=== PATIENT | male | born 1990 | race African-American/Black ===

== ENCOUNTER → 2017-11-27 | Outpatient (CLI) | payer OTHER ==
--- NOTE | 2017-11-28 09:22 | RADIOLOGY REPORT (SQ) ---
EXAM DESCRIPTION: MRI RT LOWER JOINT WITHOUT COMPLETED DATE/TIME: 11/27/2017 6:13 pm REASON FOR STUDY: M25.511 M25.571 PAIN IN RIGHT ANKLE AND JOINTS OF RIGHT FOOT M79.672 PAIN IN LEF T FOOT COMPARISON: Outside radiographs from 06/20/[address] [facility]. TECHNIQUE: Right ankle images acquired and stored on PACS. Multiplanar images include fat sensitive sequences as T1, fluid sensitive sequences as FST2/STIR, cartilage sensitive sequences as FSPD, and g radient echo sequences. LIMITATIONS: None. FINDINGS: BONE MARROW: No alteration of signal to suggest marrow replacement or edema. No occult fra cture. No large osteophytes. EFFUSIONS: No subtalar or tibiotalar effusions. No loose bodies. OSSEOUS ARTICULATIONS: Normal tibiotalar, subtalar, talonavicular and calcaneocuboid joints. TALAR DOME AND TIBIAL PLAFOND: Talar dome intact with maintained mortise and tibial plafond. Promine nt trigonal process without marrow edema or regional fluid or soft tissue inflammation. ACHILLES TENDON: Intact without partial or full-thickness tear. No adjacent bursal fluid or edema. TIBIALIS ANTERIOR TENDON: Intact without edema at the 1st MT attachment. TIBIALIS POSTERIOR TENDON: Normal morphology and no edema at the navicular attachment. No tendon mccann th fluid. FLEXOR HALLUCIS LONGUS AND FLEXOR DIGITORUM TENDONS: Normal morphology and no tendon sheath fluid. No edema of the os trigonum. PERONEUS LONGUS AND BREVIS TENDON: Normal morphology and no tendon sheath fluid. No subluxation. ATFL, CFL, PTFL: Intact. No thickening or signal alteration. No fern-ligamentous fluid. DELTOID LIGAMENT: Visualized components intact. TARSAL TUNNEL: No masses. No muscle atrophy. SINUS TARSI: No fluid. No reactive marrow edema or erosions. PLANTAR FASCIA: No signal alteration or tear. ADJACENT SOFT TISSUES: No masses. OTHER: No other significant finding. IMPRESSION: 1. No significant internal derangement of the right ankle. TECHNICAL DOCUMENTATION: JOB ID: [id number] [employer]- All Rights Reserved Reading location - IP/workstation name: [facility]
--- NOTE | 2017-11-29 15:02 | RADIOLOGY REPORT (SQ) ---
EXAM DESCRIPTION: MRI LT LOWER EXTREMITY WITHOUT COMPLETED DATE/TIME: 11/27/2017 6:13 pm REASON FOR STUDY: M25.571 PAIN IN RIGHT ANKLE AND JOINTS OF RIGHT FOOT M79.672 PAIN IN LEFT F M25.57 1 PAIN IN RIGHT ANKLE AND JOINTS OF RIGHT FOOT M79.672 PAIN IN LEFT FOOT COMPARISON: Three views of the ankle obtained subsequent to MRI for correlation. TECHNIQUE: Left ankle images acquired and stored on PACS. Multiplanar images include fat sensitive s equences as T1, fluid sensitive sequences as FST2/STIR, cartilage sensitive sequences as FSPD, and gr adient echo sequences. LIMITATIONS: Skewed positioning of the ankle and foot within the MR scanner. FINDINGS: BONE MARROW: No alteration of signal to suggest marrow replacement or edema. No occult fra cture. No large osteophytes. EFFUSIONS: No subtalar or tibiotalar effusions. No loose bodies. OSSEOUS ARTICULATIONS: Normal tibiotalar, subtalar, talonavicular and calcaneocuboid joints. TALAR DOME AND TIBIAL PLAFOND: Normal cartilage. No osteochondral defect. ACHILLES TENDON: Intact without partial or full-thickness tear. No adjacent bursal fluid or edema. TIBIALIS ANTERIOR TENDON: Intact without edema at the 1st MT attachment. TIBIALIS POSTERIOR TENDON: Normal morphology and no edema at the navicular attachment. No tendon mccann th fluid. FLEXOR HALLUCIS LONGUS AND FLEXOR DIGITORUM TENDONS: Normal morphology and no tendon sheath fluid. No edema of the os trigonum. PERONEUS LONGUS AND BREVIS TENDON: Normal morphology and no tendon sheath fluid. No subluxation. ATFL, CFL, PTFL: Intact. No thickening or signal alteration. No fern-ligamentous fluid. DELTOID LIGAMENT: Visualized components intact. TARSAL TUNNEL: No masses. No muscle atrophy. SINUS TARSI: No fluid. No reactive marrow edema or erosions. PLANTAR FASCIA: No signal alteration or tear. ADJACENT SOFT TISSUES: No masses. OTHER: No other significant finding. IMPRESSION: 1. No significant internal derangement of the left ankle. TECHNICAL DOCUMENTATION: JOB ID: [id number] [employer]- All Rights Reserved Reading location - IP/workstation name: [email or web address] [id number]
== END ==
LOC: RAD 18:25
PROVIDERS: ATTEND Podiatrist Foot & Ankle Surgery
DX: M25.571 Pain in right ankle and joints of right foot (principal); M79.672 Pain in left foot; G89.29 Other chronic pain

== ENCOUNTER → 2017-11-29 | Outpatient (CLI) | payer OTHER ==
--- NOTE | 2017-11-29 14:41 | RADIOLOGY REPORT (SQ) ---
EXAM DESCRIPTION: ANKLE LEFT COMPLETE COMPLETED DATE/TIME: 11/29/2017 2:29 pm REASON FOR STUDY: PAIN IN LEFT ANKLE (M25.572) M25.572 PAIN IN LEFT ANKLE AND JOINTS OF LEFT FOOT COMPARISON: None. NUMBER OF VIEWS: Three views. TECHNIQUE: AP, lateral, and oblique with weight bearing radiographic images acquired of the left ank le. LIMITATIONS: None. FINDINGS: MINERALIZATION: Normal. BONES: No acute fracture or dislocation. No worrisome bone lesions. No significant osteophytes. JOINTS: No effusions. SOFT TISSUES: No soft tissue swelling. No foreign body. OTHER: No other significant finding. IMPRESSION: NO SIGNIFICANT FINDING IN THE LEFT ANKLE. NO EXPLANATION FOR PAIN. TECHNICAL DOCUMENTATION: JOB ID: [id number] [employer]- All Rights Reserved Reading location - IP/workstation name: [email or web address]
== END ==
LOC: RAD 13:55
PROVIDERS: ATTEND Podiatrist Foot & Ankle Surgery
DX: M25.572 Pain in left ankle and joints of left foot (principal)

== ENCOUNTER 2017-12-04 00:33 | Emergency (ER) | payer OTHER ==
--- NOTE | 2017-12-04 01:51 | ER Document Report ---
ED General - General Chief Complaint: High Blood Sugar Stated Complaint: BLOOD SUGAR/NEUROPATHY FLARE UP Time Seen by Provider: 12/04/17 01:40 Mode of Arrival: Ambulatory Information source: Patient Notes: 27-year-old male with hypertension, hyperlipidemia, type 2 diabetes, neuropathy presents with concern for elevated glucose reading of 500 yesterday evening. Patient admits to being unable to comply with his current medication regimen due to cost. Patient has been only taking NovoLog and Lantus but not as prescribed. Lantus is supposed to be 120 mg twice daily the patient has been unable to afford this. Patient denies any admissions for his diabetes in the past. He complains of nausea without vomiting, increasing thirst. He denies any fever, chills, chest pain, shortness of breath, abdominal pain, urinary urgency, frequency or dysuria. TRAVEL OUTSIDE OF THE [place] IN LAST 30 DAYS: No - HPI Onset: Yesterday Onset/Duration: Sudden Quality of pain: No pain Severity: None Associated symptoms: Nausea. denies: Chest pain, Vomiting Exacerbated by: Denies Relieved by: Denies Similar symptoms previously: No Recently seen / treated by doctor: No Past Medical History - General Information source: Patient - Social History Smoking Status: Former Smoker Frequency of alcohol use: None Drug Abuse: None Lives with: Family Family History: Reviewed & Not Pertinent Patient has suicidal ideation: No Patient has homicidal ideation: No - Past Medical History Cardiac Medical History: Reports: Hx Hypercholesterolemia, Hx Hypertension Neurological Medical History: Reports: Other - Neuropathy Endocrine Medical History: Reports: Hx Diabetes Mellitus Type 2 Review of Systems - Review of Systems Notes: REVIEW OF SYSTEMS: CONSTITUTIONAL : Denies fever, chills, or sweats. Denies recent illness. Denies weight loss, recent hospitalizations. EENT: Denies visual changes, eye pain. Denies nasal or sinus congestion or discharge. Denies sore throat, oral lesions, difficulty swallowing. CARDIOVASCULAR: Denies chest pain. Denies palpitations. Denies lower extremity edema. RESPIRATORY: Denies cough, cold, or chest congestion. Denies shortness of breath, wheezing. GASTROINTESTINAL: Denies abdominal pain or distention. Denies vomiting, or diarrhea. Denies blood in vomitus, stools, or per rectum. Denies black, tarry stools. Denies constipation. GENITOURINARY: Denies difficulty urinating, painful urination, frequency, blood in urine, or vaginal discharge. MUSCULOSKELETAL: Denies back or neck pain or stiffness. Denies joint pain or swelling. SKIN: Denies rash, lesions or sores. HEMATOLOGIC : Denies easy bruising or bleeding. LYMPHATIC: Denies swollen glands. NEUROLOGICAL: Denies confusion or altered mental status. Denies passing out or loss of consciousness. Denies dizziness or lightheadedness. Denies headache. Denies weakness or paralysis. Denies problems difficulty with ambulation, slurred speech. Denies sensory loss, numbness, or tingling. Denies seizures. PSYCHIATRIC: Denies anxiety or stress. Denies depression, suicidal ideation, or homicidal ideation. Denies visual or auditory hallucinations. Physical Exam - Vital signs Vitals: Temp Pulse Resp BP Pulse Ox 98.5 F 116 H 16 163/106 H 99 12/04/17 01:11 12/04/17 01:11 12/04/17 01:11 12/04/17 01:11 12/04/17 01:11 Interpretation: Hypertensive, Tachycardic - Notes Notes: PHYSICAL EXAMINATION: GENERAL: Well-appearing, well-nourished and in no acute distress. HEAD: Atraumatic, normocephalic. EYES: Pupils equal round and reactive to light, extraocular movements intact, sclera anicteric, conjunctiva are normal. ENT: Nares patent, oropharynx clear without exudates. Dry mucous membranes. NECK: Normal range of motion, supple without lymphadenopathy LUNGS: Breath sounds clear to auscultation bilaterally and equal. No wheezes rales or rhonchi. HEART: Tachycardic, regular rhythm without murmurs ABDOMEN: Soft, nontender, nondistended abdomen. No guarding, no rebound. No masses appreciated. Musculoskeletal: Normal range of motion, no pitting or edema. No cyanosis. NEUROLOGICAL: Cranial nerves grossly intact. Normal speech, normal gait. Normal sensory, motor exams PSYCH: Normal mood, normal affect. SKIN: Warm, Dry, normal turgor, no rashes or lesions noted. Course - Re-evaluation Re-evalutation: Laboratory 12/04/17 12/04/17 12/04/17 02:26 02:26 02:26 WBC 7.0 RBC 6.03 H Hgb 16.3 Hct 47.9 MCV 80 MCH 27.0 MCHC 33.9 RDW 13.2 Plt Count 249 Seg Neutrophils % 64.2 Lymphocytes % 27.4 Monocytes % 6.8 Eosinophils % 0.9 Basophils % 0.7 Absolute Neutrophils 4.5 Absolute Lymphocytes 1.9 Absolute Monocytes 0.5 Absolute Eosinophils 0.1 Absolute Basophils 0.1 VBG pH VBG pCO2 VBG HCO3 VBG Base Excess Sodium 132.6 L Potassium 4.6 Chloride 91 L Carbon Dioxide 24 Anion Gap 18 BUN 13 Creatinine 0.81 Est GFR ( Amer) > 60 Est GFR (Non-Af Amer) > 60 Glucose 667 H* Calcium 10.2 Total Bilirubin 0.4 Direct Bilirubin 0.4 Neonat Total Bilirubin Not Reportable Neonat Direct Bilirubin Not Reportable Neonat Indirect Bili Not Reportable AST 19 ALT 32 Alkaline Phosphatase 118 Total Protein 7.0 Albumin 4.0 Urine Color COLORLESS Urine Appearance CLEAR Urine pH 6.0 Ur Specific Garrett 1.023 Urine Protein NEGATIVE Urine Glucose (UA) >=500 H Urine Ketones NEGATIVE Urine Blood NEGATIVE Urine Nitrite NEGATIVE Urine Bilirubin NEGATIVE Urine Urobilinogen NEGATIVE Ur Leukocyte Esterase NEGATIVE Urine WBC (Auto) 0 Urine Mucus (Auto) RARE Urine Ascorbic Acid NEGATIVE 12/04/17 03:14 WBC RBC Hgb Hct MCV MCH MCHC RDW Plt Count Seg Neutrophils % Lymphocytes % Monocytes % Eosinophils % Basophils % Absolute Neutrophils Absolute Lymphocytes Absolute Monocytes Absolute Eosinophils Absolute Basophils VBG pH 7.35 VBG pCO2 44.4 VBG HCO3 24.0 VBG Base Excess -1.8 Sodium Potassium Chloride Carbon Dioxide Anion Gap BUN Creatinine Est GFR ( Amer) Est GFR (Non-Af Amer) Glucose Calcium Total Bilirubin Direct Bilirubin Neonat Total Bilirubin Neonat Direct Bilirubin Neonat Indirect Bili AST ALT Alkaline Phosphatase Total Protein Albumin Urine Color Urine Appearance Urine pH Ur Specific Garrett Urine Protein Urine Glucose (UA) Urine Ketones Urine Blood Urine Nitrite Urine Bilirubin Urine Urobilinogen Ur Leukocyte Esterase Urine WBC (Auto) Urine Mucus (Auto) Urine Ascorbic Acid 12/04/17 03:42 27-year-old type II diabetic presents with concern for elevated glucose reading last evening. He states his glucose was over 500 yesterday. He does admit to being noncompliant with his diabetic medication secondary to cost. He currently is changing insurances. Patient admits to associated nausea but denies vomiting. He has no other physical complaints. Upon arrival patient is hypertensive, tachycardic. He does not appear toxic or dehydrated. He is in no acute distress. Previous medical records and nursing notes reviewed. CBC is without leukocytosis or anemia. CMP does show hyponatremia (likely false and secondary to hyperglycemia), marked hyperglycemia without evidence of DKA. VBG and urinalysis were obtained and essentially within normal limits except for glucose in the urine. Patient did receive 3 L of IV fluids, 15 units of insulin, and 40 mEq of potassium p.o. He remained stable throughout his ED course. Social service consult was placed with hope that he will receive help obtaining his prescribed medications. - Vital Signs Vital signs: Temp Pulse Resp BP Pulse Ox 98.5 F 116 H 16 163/106 H 99 12/04/17 01:11 12/04/17 01:11 12/04/17 01:11 12/04/17 01:11 12/04/17 01:11 - Laboratory Result Diagrams: 12/04/17 02:26 12/04/17 02:26 Laboratory results interpreted by me: 12/04/17 12/04/17 12/04/17 02:26 02:26 02:26 RBC 6.03 H Sodium 132.6 L Chloride 91 L Glucose 667 H* Urine Glucose (UA) >=500 H Discharge - Discharge Clinical Impression: Tachycardia, Hyperglycemia, Noncompliance with medication regimen, Neuropathy Hypertension Qualifiers: Hypertension type: unspecified Qualified Code(s): I10 - Essential (primary) hypertension Condition: Good Disposition: HOME, SELF-CARE Instructions: Hyperglycemia ([facility]), High Blood Pressure ([facility]), Neuropathy ([facility]) Additional Instructions: A social work nurse consult has been placed for you. They will contact you regarding your medication needs. In the meantime please contact your management retail intern and primary care physician to see if they can help you obtain these medications. Follow up with your physician tomorrow for further care or return to the ED IMMEDIATELY if symptoms worsen or new concerns occur. If you cannot afford to follow up with your primary care physician a list of low cost clinics have been provided at the end of your discharge papers as well. Prescriptions: Metformin HCl [Metformin HCl ER] 1,000 mg PO BID #60 [id number] Forms: Elevated Blood Pressure [facility] [NO LOCAL MD] - Follow up in 3-5 days
[2017-12-04] MEDS: NORMAL SALINE 1000 ML 1,000 ML IV PRN ×2 (02:22→03:38)
[2017-12-04 02:51] LABS: ABSOLUTE BASOPHILS # (AUTO) 0.1 10^3/uL (0.0-0.2); ABSOLUTE EOSINOPHILS # (AUTO) 0.1 10^3/uL (0.0-0.6); ABSOLUTE LYMPHOCYTES (AUTO) 1.9 10^3/uL (0.5-4.7); ABSOLUTE MONOCYTES (AUTO) 0.5 10^3/uL (0.1-1.4); ABSOLUTE NEUT (AUTO) 4.5 10^3/uL (1.7-8.2); BASOPHILS % (AUTO) 0.7 % (0-2); EOSINOPHILS % (AUTO) 0.9 % (0-6); HEMATOCRIT 47.9 % (37.9-51.0); HEMOGLOBIN 16.3 g/dL (13.5-17.0); LYMPHOCYTES % (AUTO) 27.4 % (13-45); MEAN CORPUSCULAR HGB CONC 33.9 g/dL (32.0-36.0); MEAN CORPUSCULAR VOLUME 80 fl (80-97); MONOCYTES % (AUTO) 6.8 % (3-13); PLATELET COUNT 249 10^3/uL (150-450); RED BLOOD COUNT 6.03 10^6/uL (4.35-5.55); RED CELL DISTRIBUTION WIDTH 13.2 % (11.5-14.0); SEGMENTED NEUTROPHILS % (AUTO) 64.2 % (42-78); TOTAL CELLS COUNTED % (AUTO) 100 %
[2017-12-04 03:03] LABS: APPEARANCE,URINE CLEAR; BILIRUBIN,URINE NEGATIVE (NEGATIVE); COLOR,URINE COLORLESS; GLUCOSE, URINE >=500 mg/dL (NEGATIVE); KETONES,URINE NEGATIVE (NEGATIVE); LEUKOCYTE ESTERASE,URINE NEGATIVE (NEGATIVE); NITRITE,URINE NEGATIVE (NEGATIVE); PROTEIN,URINE NEGATIVE (NEGATIVE); URINE SPECIFIC GRAVITY 1.023; UROBILINOGEN,URINE NEGATIVE mg/dL (<2.0)
[2017-12-04 03:05] LABS: ALANINE AMINOTRANSFERASE 32 U/L (21-72); ALKALINE PHOSPHATASE 118 U/L (38-126); ANION GAP 18 (5-19); ASPARTATE AMINO TRANSFERASE 19 U/L (17-59); BILIRUBIN,DIRECT 0.4 mg/dL (0.0-0.4); BILIRUBIN,TOTAL 0.4 mg/dL (0.2-1.3); BLOOD UREA NITROGEN 13 mg/dL (7-20); CALCIUM 10.2 mg/dL (8.4-10.2); CARBON DIOXIDE 24 mmol/L (22-30); CHLORIDE 91 mmol/L (98-107); POTASSIUM 4.6 mmol/L (3.6-5.0); SODIUM 132.6 mmol/L (137-145)
[2017-12-04 03:19] LABS: GLUCOSE 667 mg/dL (75-110)
[2017-12-04] MEDS ORDERED: NORMAL SALINE 1000 ML 1,000 ML IV ONE ×2 (03:20→03:59)
[2017-12-04] MEDS ORDERED: INSULIN REG, HUMAN 100 UNIT/ML 3 ML VIAL (PYX) IV ONE ×2 (03:28→03:59)
[2017-12-04] MEDS ORDERED: POTASSIUM CHLORIDE 10 MEQ CAPSULE.ER PO ONE (03:28)
[2017-12-04 03:35] LABS: VENOUS BLOOD BASE EXCESS -1.8 mmol/L; VENOUS BLOOD PCO2 44.4 mmHg (35-63); VENOUS BLOOD PH 7.35 (7.30-7.42)
[2017-12-04 05:42] VITALS: BP 173/86
== END 2017-12-04 05:48 | disposition home or self-care (01) ==
LOC: ER 00:33
DX: E11.65 Type 2 diabetes mellitus with hyperglycemia (principal); E11.40 Type 2 diabetes mellitus with diabetic neuropathy, unspecified; T38.3X6A Underdosing of insulin and oral hypoglycemic [antidiabetic] drugs, initial encounter; Z91.120 Patient's intentional underdosing of medication regimen due to financial hardship; Z91.14 Patient's other noncompliance with medication regimen; R11.0 Nausea; R00.0 Tachycardia, unspecified; I10 Essential (primary) hypertension; Z87.891 Personal history of nicotine dependence
CPT/HCPCS: 99285; 96360; 96361; 36415; 82962; 85025; 80053; 81001; 82803; J1815; J7030

== ENCOUNTER 2018-03-13 21:11 | Emergency (ER) | payer OTHER ==
[2018-03-13] MEDS ORDERED: PENICILLIN V POTASSIUM 500 MG TABLET PO ONE (23:02)
[2018-03-13] MEDS ORDERED: IBUPROFEN 800 MG TABLET PO ONE (23:02)
--- NOTE | 2018-03-13 23:06 | ER Document Report ---
ED Oral Problem - General Chief Complaint: Dental Injury Stated Complaint: EAR/THROAT PAIN Time Seen by Provider: 03/13/18 22:18 Mode of Arrival: Ambulatory Information source: Patient Notes: 27-year-old male presented to ED for complaint of pain in tooth #31. He states he cracked it today and this tooth has a feeling but the part of the tube has exposed a cavity. He states the pain has started causing him to have a sore throat headache and earache. He denies any fevers chills or signs of illness. Is alert and oriented respirations regular and unlabored speaking in full sentences. TRAVEL OUTSIDE OF THE [place] IN LAST 30 DAYS: No - HPI Patient complains to provider of: Jaw pain, Toothache Onset: This afternoon Onset: Gradual Quality of pain: Achy, Sharp Severity: Moderate Pain Level: 4 Associated symptoms: Toothache Worsened by: Cold Relieved by: Nothing Similar symptoms previously: Yes Recently seen / treated by doctor/dentist: No - Related Data Allergies/Adverse Reactions: No Known Drug Allergies Allergy (Verified 03/13/18 21:16) Past Medical History - General Information source: Patient - Social History Smoking Status: Former Smoker Cigarette use (# per day): No Chew tobacco use (# tins/day): No Smoking Education Provided: No Frequency of alcohol use: None Lives with: Parents Family History: Reviewed & Not Pertinent Patient has suicidal ideation: No Patient has homicidal ideation: No - Past Medical History Cardiac Medical History: Reports: Hx Hypercholesterolemia, Hx Hypertension Pulmonary Medical History: Reports: Hx Asthma EENT Medical History: Reports: None Neurological Medical History: Reports: None Endocrine Medical History: Reports: Hx Diabetes Mellitus Type 2 - With neuropathy Renal/ Medical History: Reports: None Malignancy Medical History: Reports None GI Medical History: Reports: None Musculoskeletal Medical History: Reports None Skin Medical History: Reports None Psychiatric Medical History: Reports: None Traumatic Medical History: Reports: None Infectious Medical History: Reports: None Surgical Hx: Negative - Immunizations Immunizations up to date: Yes Review of Systems - Review of Systems Notes: REVIEW OF SYSTEMS: CONSTITUTIONAL : Denies fever, chills, or sweats. Denies recent illness. EENT: Planes of pain in tooth #31 that is radiating to his head and ear. He states he took a piece of this tooth off today and now it is exposed to a cavity underneath of the tooth and is is caused pain. He states he just needs some antibiotics so he does not get an infection until he can follow-up with the dentist. CARDIOVASCULAR: Denies chest pain. Denies palpitations or racing or irregular heart beat. Denies ankle edema. RESPIRATORY: Denies cough, cold, or chest congestion. Denies shortness of breath, difficulty breathing, or wheezing. GASTROINTESTINAL: Denies abdominal pain or distention. Denies nausea, vomiting , or diarrhea. Denies blood in vomitus, stools, or per rectum. Denies black, tarry stools. Denies constipation. GENITOURINARY: Denies difficulty urinating, painful urination, burning, frequency, blood in urine, or discharge. MUSCULOSKELETAL: Denies back or neck pain or stiffness. Denies joint pain or swelling. SKIN: Denies rash, lesions or sores. HEMATOLOGIC : Denies easy bruising or bleeding. LYMPHATIC: Denies swollen, enlarged glands. NEUROLOGICAL: Denies confusion or altered mental status. Denies passing out or loss of consciousness. Denies dizziness or lightheadedness. Denies headache. Denies weakness or paralysis or loss of use of either side. Denies problems with gait or speech. Denies sensory loss, numbness, or tingling. Denies seizures. PSYCHIATRIC: Denies anxiety or stress. Denies depression, suicidal ideation, or homicidal ideation. ALL OTHER SYSTEMS REVIEWED AND NEGATIVE. Dictation was performed using [employer] voice recognition software PHYSICAL EXAMINATION: GENERAL: Well-appearing, well-nourished and in no acute distress. HEAD: Atraumatic, normocephalic. EYES: Pupils equal round and reactive to light, extraocular movements intact, sclera anicteric, conjunctiva are normal. ENT: Nares patent, oropharynx clear without exudates. Moist mucous membranes. Patient complains of dental pain in tooth #31. There is a portion of the tooth number 31 minutes into the posterior aspect of the tooth. There is a cavity in this area. There is very minimal redness to the surrounding gums with no signs of an abscess. NECK: Normal range of motion, supple without lymphadenopathy LUNGS: Breath sounds clear to auscultation bilaterally and equal. No wheezes rales or rhonchi. HEART: Regular rate and rhythm without murmurs ABDOMEN: Soft, nontender, nondistended abdomen. No guarding, no rebound. No masses appreciated. Musculoskeletal: Normal range of motion, no pitting or edema. No cyanosis. NEUROLOGICAL: Cranial nerves grossly intact. Normal speech, normal gait. Normal sensory, motor exams PSYCH: Normal mood, normal affect. SKIN: Warm, Dry, normal turgor, no rashes or lesions noted. Physical Exam - Vital signs Vitals: Temp Pulse Resp BP Pulse Ox 98.9 F 116 H 18 151/105 H 98 03/13/18 21:22 03/13/18 21:22 03/13/18 21:22 03/13/18 21:22 03/13/18 21:22 Course - Re-evaluation Re-evalutation: 03/14/18 03:14 Presentation is most consistent with likely an infected tooth. Airway is patent. Vitals within normal limits. Patient is able swallow without any difficulty. There is no significant facial swelling. No evidence of Trevin angina, apical abscess, or airway obstruction. Patient will be started on antibiotics. I've instructed to follow-up with dentistry as earliest ability for definitive management. At this time will discharge with return precautions and follow-up recommendations. Verbal discharge instructions given a the bedside and opportunity for questions given. Medication warnings reviewed. Patient is in agreement with this plan and has verbalized understanding of return precautions and the need for primary care follow-up in the next 24-72 hours. - Vital Signs Vital signs: Temp Pulse Resp BP Pulse Ox 98.0 F 117 H 18 121/83 97 03/13/18 23:09 03/13/18 23:09 03/13/18 23:09 03/13/18 23:09 03/13/18 23:09 Discharge - Discharge Clinical Impression: Pain due to dental caries Condition: Stable Disposition: HOME, SELF-CARE Instructions: Family Physicians / Practices, Use of [id number] Ibuprofen ([facility]) Additional Instructions: TOOTHACHE: Your pain is due to dental decay. The tooth must be repaired in order for you to feel better. You will, therefore, be referred to a dentist. We do not have dentists on the staff at [facility]. Severe swelling or drainage around a tooth usually means a dental abscess. This also requires evaluation and treatment by the dentist, but antibiotics may be prescribed while awaiting dental treatment. You should be rechecked immediately if you develop major swelling of the face, increasing pain, a lump in the jaw or gums, headache, difficulty swallowing, or fever. PENICILLIN V K: You have been given a prescription for Penicillin VK. Your physician has determined that this is the best antibiotic for your condition. Pen VK can be taken with meals, however more of the antibiotic gets into the bloodstream if it's taken on an empty stomach. Penicillin usually has no side effects. However, allergy to penicillins is common. If you have had an allergic reaction to any drug of the penicillin family, you should never take any other penicillin. Notify your doctor at once if you develop hives, itching, swelling, faintness, or shortness of breath. FOLLOW-UP CARE: You have been referred for follow-up care to the dentists listed below. Call the dentists office for an appointment as you were instructed or within the next two days. If you experience worsening or a significant change in your symptoms, notify the physician immediately or return to the Emergency Department at any time for re-evaluation. [facility] [address] [place], [place] [facility] [address] [place] [address] [facility] [address] [facility] [address] [facility] [place] [id number] [facility] [email or web address] [address] [place] [address] Saturday- 8:00am to 5:00 pm Will see patients from other [facility]. Charges based on income and family size and accepts Medicare, Medicaid, and Insurances Will pull molars [facility] [address] Hours of Operation 8:00 am - 4:30 pm weekdays The following dental offices accept Medicaid: [facility] Dr. Abraham Dr. Dyer Dr. Meeks Dr. Vela Jose Combs [place], and [facility] oral surgery Dr. Frazier ([place]) Dr. Cowan ([place]) [facility] Drs. Wells ([place]) Dr. Heaton ([place]) [facility] Dr. Brenner ([place]) Drs. Irby and ([place]) Medicaid Care Line Prescriptions: Penicillin V Potassium [Penicillin Vk 500 mg Tablet] 500 mg PO BID #20 tablet Forms: Elevated Blood Pressure
[2018-03-13 23:15] VITALS: BP 121/83
== END 2018-03-13 23:15 | disposition home or self-care (01) ==
LOC: ER 21:11
DX: K02.9 Dental caries, unspecified (principal); E78.00 Pure hypercholesterolemia, unspecified; I10 Essential (primary) hypertension; E11.9 Type 2 diabetes mellitus without complications
CPT/HCPCS: 99283

== ENCOUNTER 2018-03-23 23:24 | Emergency (ER) | payer OTHER ==
[2018-03-24] MEDS ORDERED: KETOROLAC TROMETHAMINE 60 MG/2 ML SDV IM ONE (00:36)
--- NOTE | 2018-03-24 00:42 | ER Document Report ---
HPI - HPI Patient complains to provider of: Back pain Time Seen by Provider: 03/24/18 00:24 Pain Level: 3 Context: The lumbar and thoracic back pain since June. 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 States he was falling backwards onto his buttocks multiple times and at one point in time landed on his back. States he thinks that is when he originally hurt it. States that the pain is intermittent at times more so in his upper lumbar lower thoracic region. Patient denies urinary retention, loss of bowel or bladder. Patient does state he has a history of diabetic neuropathy, is on gabapentin. States the numbness and tingling in bilateral feet has increased and is also intermittent in nature. Patient denies any pain radiating down the buttocks or into the back of either leg. Past medical history: Diabetes, diabetic neuropathy, hypertension, hyperlipidemia, GERD Medications: Metformin, Jardiance, gabapentin, Lipitor, atorvastatin, Nexium allergies: None Surgical history: None Patient denies cigarette smoking, denies EtOH use, denies illicit drug use to include past IV drug use. - CONSTITUTIONAL Constitutional: DENIES: Fever, Chills - EENT EENT: DENIES: Sore Throat, Ear Pain, Eye problems - NEURO Neurology: DENIES: Headache, Weakness, Vision blurred, Dizzinesss / Vertigo - CARDIOVASCULAR Cardiovascular: DENIES: Chest pain - RESPIRATORY Respiratory: DENIES: Trouble Breathing, Coughing - GASTROINTESTINAL Gastrointestinal: DENIES: Abdominal Pain, Black / Bloody Stools - URINARY Urinary: DENIES: Dysuria, Urgency, Frequency - MUSCULOSKELETAL Musculoskeletal: REPORTS: Extremity pain - Legs Past Medical History - General Information source: Patient - Social History Smoking Status: Former Smoker Lives with: Family - She did on Saturday Family History: Reviewed & Not Pertinent Patient has suicidal ideation: No Patient has homicidal ideation: No - Past Medical History Cardiac Medical History: Reports: Hx Hypercholesterolemia, Hx Hypertension Pulmonary Medical History: Reports: Hx Asthma Endocrine Medical History: Reports: Hx Diabetes Mellitus Type 2 - With neuropathy Renal/ Medical History: Denies: Hx Peritoneal Dialysis - Immunizations Immunizations up to date: Yes Vertical Provider Document - CONSTITUTIONAL Agree With Documented VS: Yes Notes: GENERAL: Alert, interacts well. No acute distress. HEAD: Normocephalic, atraumatic. EYES: Pupils equal, round, and reactive to light. Extraocular movements intact. ENT: Oral mucosa moist, tongue midline. NECK: Full range of motion. Supple. Trachea midline. LUNGS: Clear to auscultation bilaterally, no wheezes, rales, or rhonchi. No respiratory distress. HEART: Regular rate and rhythm. No murmur ABDOMEN: Soft, non-tender. Non-distended. Bowel sounds present in all 4 quadrants. EXTREMITIES: Moves all 4 extremities spontaneously. No edema, normal radial and dorsalis pedis pulses bilaterally. No cyanosis. 5 out of 5 strength all 4 extremities. BACK: no cervical midline tenderness. No saddle anesthesia, normal distal neurovascular exam. Mild lower thoracic, upper lumbar mid line tenderness upon palpation. No CVA tenderness, or pain radiating into either buttocks. NEUROLOGICAL: Alert and oriented x3. Normal speech. cranial nerves II through XII grossly intact. PSYCH: Normal affect, normal mood. SKIN: Warm, dry, normal turgor. No rashes or lesions noted. Feet: Extensive exam of bilateral feet reveals no breaks in the skin, capillary refill less than 2 seconds, positive PMS. - INFECTION CONTROL TRAVEL OUTSIDE OF THE [place] IN LAST 30 DAYS: No Course - Re-evaluation Re-evalutation: 03/24/18 01:51 X-rays revealed no signs of fracture. Patient states Toradol has helped his pain in the emergency room. Due to patient driving I will prescribe him home with Flexeril. Discussed close follow-up with primary care provider. Return precautions discussed. Vitals reviewed, Nursing notes reviewed. Discharge - Discharge Clinical Impression: Back pain Qualifiers: Back pain location: low back pain Chronicity: acute Back pain laterality: midline Sciatica presence: without sciatica Qualified Code(s): M54.5 - Low back pain Condition: Stable Disposition: HOME, SELF-CARE Instructions: Low Back Pain ([facility]), Muscle Strain ([facility]), Warm Packs ([facility]) Additional Instructions: As we discussed you have been seen and treated in the emergency department for low back pain. You should follow-up with your primary care provider in the next 24-48 hours. Please take medications as prescribed. Please return to the emergency room for any other concerning symptoms. And orthopedic follow-up phone number will be within this packet. Please follow -up with Ortho for further MRI testing. Prescriptions: Ketorolac Tromethamine [Toradol 10 mg Tablet] 10 mg PO Q8HP PRN #24 tablet PRN Reason: Cyclobenzaprine HCl [Flexeril 10 mg Tablet] 10 mg PO TIDP PRN #15 tab PRN Reason: Referrals: NORAH BONE MD [ACTIVE STAFF] - Follow up as needed
--- NOTE | 2018-03-24 01:36 | RADIOLOGY REPORT (SQ) ---
EXAM DESCRIPTION: XR THORACIC SPINE 2 VIEWS COMPLETED DATE/TME: 03/24/2018 00:35 CLINICAL HISTORY: 27 years, Male, pain COMPARISON: None. NUMBER OF VIEWS: 3 TECHNIQUE: 3 views of the thoracic spine LIMITATIONS: None. FINDINGS: Vertebral body height and alignment is preserved. The disc spaces are maintained. IMPRESSION: Negative exam 2010 [facility]- All Rights Reserved
--- NOTE | 2018-03-24 01:49 | RADIOLOGY REPORT (SQ) ---
EXAM DESCRIPTION: XR LUMBAR SPINE ANTEROPOSTERIOR, LATERAL, AND OBLIQUES COMPLETED DATE/TME: 03/24/2018 00:35 CLINICAL HISTORY: 27 years ,Male pain COMPARISON: None. TECHNIQUE: Five views FINDINGS: Vertebral body alignment is unremarkable. No acute fractures are identified. IMPRESSION: No acute fracture is identified.
[2018-03-24 03:02] VITALS: BP 152/106
== END 2018-03-24 02:15 | disposition home or self-care (01) ==
LOC: ER 23:24
DX: M54.5 Low back pain (principal); M54.6 Pain in thoracic spine; E11.40 Type 2 diabetes mellitus with diabetic neuropathy, unspecified; I10 Essential (primary) hypertension; J45.909 Unspecified asthma, uncomplicated; E78.5 Hyperlipidemia, unspecified; E78.00 Pure hypercholesterolemia, unspecified; K21.9 Gastro-esophageal reflux disease without esophagitis; Z79.84 Long term (current) use of oral hypoglycemic drugs; Z79.899 Other long term (current) drug therapy; Z87.891 Personal history of nicotine dependence
CPT/HCPCS: 99283; 96372; 72110; 72070; J1885

== ENCOUNTER 2018-04-01 17:03 | Emergency (ER) | payer OTHER ==
--- NOTE | 2018-04-01 18:31 | ER Document Report ---
ED Medical Screen (RME) - General Chief Complaint: Depression Stated Complaint: ANIEXTY Time Seen by Provider: 04/01/18 18:11 TRAVEL OUTSIDE OF THE [place] IN LAST 30 DAYS: No - HPI Patient complains to provider of: insomnia - Related Data Allergies/Adverse Reactions: No Known Drug Allergies Allergy (Verified 03/13/18 21:16) Past Medical History - General Information source: Patient - Social History Cigarette use (# per day): No Frequency of alcohol use: None Lives with: Alone - Past Medical History Cardiac Medical History: Reports: Hx Hypercholesterolemia, Hx Hypertension Pulmonary Medical History: Reports: Hx Asthma Endocrine Medical History: Reports: Hx Diabetes Mellitus Type 2 - With neuropathy Renal/ Medical History: Denies: Hx Peritoneal Dialysis - Immunizations Immunizations up to date: Yes Review of Systems - Review of Systems -: Yes All other systems reviewed and negative Physical Exam - Vital signs Vitals: Temp Pulse Resp BP Pulse Ox 98.4 F 115 H 16 160/99 H 99 04/01/18 17:13 04/01/18 17:13 04/01/18 17:13 04/01/18 17:13 04/01/18 17:13 - General General appearance: Appears well, Alert - HEENT Head: Normocephalic, Atraumatic Eyes: Normal Pupils: PERRL - Respiratory Respiratory status: No respiratory distress Chest status: Nontender Breath sounds: Normal Chest palpation: Normal - Cardiovascular Rhythm: Regular Heart sounds: Normal auscultation Murmur: No - Abdominal Inspection: Normal Distension: No distension Bowel sounds: Normal Tenderness: Nontender Organomegaly: No organomegaly - Back Back: Normal, Nontender - Extremities General upper extremity: Normal inspection, Nontender, Normal color, Normal ROM , Normal temperature General lower extremity: Normal inspection, Nontender, Normal color, Normal ROM , Normal temperature, Normal weight bearing. No: Nilo's sign - Neurological Neuro grossly intact: Yes Cognition: Normal Orientation: AAOx4 Morrice Coma Scale Eye Opening: Spontaneous Franklin Coma Scale Verbal: Oriented Morrice Coma Scale Motor: Obeys Commands Morrice Coma Scale Total: 15 Speech: Normal Motor strength normal: LUE, RUE, LLE, RLE Sensory: Normal - Psychological Associated symptoms: Normal affect, Normal mood Course - Re-evaluation Re-evalutation: 27 yo with a hx of anxiety and recently insomnia that presents that for evaluation of inability to sleep for the last 3 days and worsening anxiety as a result thereof. He specifically denies fevers, chest pains, suicidality, homicidality or hallucinations. In discussion we mutually decided to try a brief trial of a sleep aid. We will give a 3-day prescription for Ambien. We did discuss the importance of appropriate sleep hygiene. He agreed to return in case of any worsening depression anxiety chest pain or other symptoms. Though his heart rate was elevated upon arrival I do not believe this represents any other more serious underlying cause of his heart rate being elevated such as but not limited to a pulmonary embolism or ID. - Vital Signs Vital signs: Temp Pulse Resp BP Pulse Ox 98.6 F 88 18 142/74 H 100 04/01/18 18:52 04/01/18 18:52 04/01/18 18:52 04/01/18 18:52 04/01/18 18:52 Doctor's Discharge - Discharge Clinical Impression: Acute insomnia Condition: Good Disposition: HOME, SELF-CARE Instructions: Insomnia ([facility]) Additional Instructions: You were seen today in the emergency department for your insomnia. You should use this medication only as needed for the next 3 nights. Sure that she go to bed at a reasonable time, do not locate any screens an hour before you go to bed. You need to go to bed in a dark room with no lights on and cool air. He should avoid caffeine for 12 hours prior to bed. You should also take a dose of melatonin prior to going to bed. Sleep as late as you can. If you have worsening fevers or chills depression thoughts of harming herself or vivid dreams discontinue the medication return to the emergency room. Prescriptions: Zolpidem Tartrate [Ambien 5 mg Tablet] 5 mg PO HSP PRN 3 Days #3 tablet PRN Reason: Forms: Elevated Blood Pressure Referrals: DAY AMEZCUA MD [NO LOCAL MD] - Follow up as needed
[2018-04-01 18:53] VITALS: BP 142/74
== END 2018-04-01 18:53 | disposition home or self-care (01) ==
LOC: ER 17:03
DX: G47.00 Insomnia, unspecified (principal); F32.9 Major depressive disorder, single episode, unspecified; F41.9 Anxiety disorder, unspecified; E78.00 Pure hypercholesterolemia, unspecified; I10 Essential (primary) hypertension; E11.9 Type 2 diabetes mellitus without complications
CPT/HCPCS: 99283

== ENCOUNTER 2018-04-06 21:09 | Emergency (ER) | payer OTHER ==
[2018-04-06 21:25] VITALS: BP 140/89
[2018-04-06] MEDS ORDERED: ACETAMINOPHEN 325 MG TABLET PO ONE (22:48)
--- NOTE | 2018-04-06 23:43 | RADIOLOGY REPORT (SQ) ---
EXAM DESCRIPTION: XR ANKLE 3 OR MORE VIEWS COMPLETED DATE/TME: 04/06/2018 22:48 CLINICAL HISTORY: 27 years, Male, rolled ankle COMPARISON: None. NUMBER OF VIEWS: 3 TECHNIQUE: 3 views of the right ankle LIMITATIONS: None. FINDINGS: Negative for fracture or dislocation. Soft tissues are unremarkable. Ankle mortise is intact IMPRESSION: Negative exam copyright 2010 [facility] [employer]- All Rights Reserved
--- NOTE | 2018-04-06 23:44 | RADIOLOGY REPORT (SQ) ---
EXAM DESCRIPTION: XR FOOT 3 OR MORE VIEWS COMPLETED DATE/TME: 04/06/2018 22:51 CLINICAL HISTORY: 27 years, Male, rolled ankle, concern about foot inj, hx neuropath COMPARISON: None. NUMBER OF VIEWS: 3 TECHNIQUE: 3 view right foot LIMITATIONS: None. FINDINGS: Linear metallic densities project along the plantar aspect of the proximal phalanx of the great toe. Correlate with history. Negative for acute fracture or dislocation. Tiny posterior calcaneal spur. There is periarticular osteopenia is suggested throughout the foot. IMPRESSION: Nonspecific periarticular osteopenia. No acute osseous abnormality. Tiny calcaneal spur. Linear metallic densities along the plantar aspect of the soft tissues of the great toe. Correlate with history copyright 2010 [employer]- All Rights Reserved
--- NOTE | 2018-04-07 00:03 | ER Document Report ---
HPI - HPI Patient complains to provider of: Right ankle pain Time Seen by Provider: 04/06/18 22:36 Onset: Other - 2 days Onset/Duration: Persistent Quality of pain: Achy Pain Level: 4 Context: Patient presents complaining of right ankle pain after rolling his ankle 2 days ago. Patient states he has previously sprained this ankle in the past. Patient also complains of discoloration that he is noted to his great toe of the right foot. Patient states that he has peripheral neuropathy and he is diabetic so is very concerned about any potential injuries to his feet. Patient states that he is very anxious which is why his heart rate is fast at this time. Associated Symptoms: Other - Right ankle pain. denies: Fever Exacerbated by: Movement Relieved by: Denies Similar symptoms previously: Yes Recently seen / treated by doctor: No - ROS ROS below otherwise negative: Yes Systems Reviewed and Negative: Yes All other systems reviewed and negative - CONSTITUTIONAL Constitutional: DENIES: Fever, Chills - CARDIOVASCULAR Cardiovascular: DENIES: Chest pain - RESPIRATORY Respiratory: DENIES: Trouble Breathing, Coughing - GASTROINTESTINAL Gastrointestinal: REPORTS: Nausea - MUSCULOSKELETAL Musculoskeletal: REPORTS: Extremity pain - R ankle injury - DERM Skin Color: Normal Skin Problems: None Past Medical History - General Information source: Patient - Social History Smoking Status: Former Smoker Frequency of alcohol use: None Drug Abuse: None Occupation: None Family History: Reviewed & Not Pertinent Patient has suicidal ideation: No Patient has homicidal ideation: No Pulmonary Medical History: Reports: Hx Asthma Neurological Medical History: Reports: Other - Peripheral neuropathy Endocrine Medical History: Reports: Hx Diabetes Mellitus Type 2 - With neuropathy Renal/ Medical History: Denies: Hx Peritoneal Dialysis Surgical Hx: Negative - Immunizations Immunizations up to date: Yes Vertical Provider Document - CONSTITUTIONAL Agree With Documented VS: No - Heart rate 120 Exam Limitations: No Limitations General Appearance: WD/WN, No Apparent Distress - INFECTION CONTROL TRAVEL OUTSIDE OF THE [place] IN LAST 30 DAYS: No - HEENT HEENT: Atraumatic, Normocephalic - NECK Neck: Normal Inspection - RESPIRATORY Respiratory: Breath Sounds Normal, No Respiratory Distress - CARDIOVASCULAR Cardiovascular: Regular Rhythm, No Murmur, Tachycardia - BACK Back: Normal Inspection - MUSCULOSKELETAL/EXTREMETIES Musculoskeletal/Extremeties: MAEW, FROM, Tender - Mild tenderness to right ankle lateral malleolar area, 1+ edema, no deformity. - NEURO Level of Consciousness: Awake, Alert, Appropriate Motor/Sensory: No Motor Deficit - DERM Integumentary: Warm, Dry Notes: Patient was subtle dark discoloration to the dorsal aspect of the right great toe. Patient without any injuries or puncture wounds noted to the plantar surface of the foot Course - Re-evaluation Re-evalutation: 04/07/18 00:00 Patient advised of x-ray report findings and concern about retained foreign body to right foot. Patient without any plantar puncture wound or inflammation. Patient denies any known injury to the foot. Patient does have an upcoming appointment with his range conservationist and states that he has had this foot x-rayed multiple times previously as well as a previous MRI. Patient encouraged to follow-up with Orth O or his podiatry for further evaluation. Patient was given a copy of his x-ray reports that he can take this to his range conservationist for further evaluation of metallic foreign body retained in foot. Patient's repeat vital signs at discharge were performed per RN, RN states that heart rate was in the 90s. - Vital Signs Vital signs: Temp Pulse Resp BP Pulse Ox 98.3 F 129 H 26 H 140/89 H 98 04/06/18 21:24 04/06/18 21:24 04/06/18 21:24 04/06/18 21:24 04/06/18 21:24 - Diagnostic Test Radiology reviewed: Image reviewed, Reports reviewed Procedures - Immobilization Right Ankle Pre-Proc Neuro Vasc Exam: Normal Immobilizer type: Ankle stirrup Performed by: PCT Post-Proc Neuro Vasc Exam: Normal Alignment checked and good: Yes Discharge - Discharge Clinical Impression: Foreign body in subcutaneous tissue Right ankle sprain Qualifiers: Encounter type: initial encounter Involved ligament of ankle: unspecified ligament Qualified Code(s): S93.401A - Sprain of unspecified ligament of right ankle, initial encounter Condition: Stable Disposition: HOME, SELF-CARE Instructions: Ankle Stirrup Splint ([facility]), Use of Crutches ([facility]), Ice & Elevation ([facility]), Retained Subcutaneous Foreign Object ([facility]), Sprained Ankle ([facility] ) Additional Instructions: Return immediately for any new or worsening symptoms Followup with your primary care provider, call tomorrow to make a followup appointment Follow-up with your range conservationist or an orthopedic surgeon for further evaluation of retained foreign body to the foot. Call tomorrow for an appointment Prescriptions: Naproxen [Naprosyn 250 Nmg Tablet] 1 tab PO BID #14 tablet Referrals: MAY MURRIETA FOR SURGERY ([facility]) [Provider Group] - Follow up as needed MICHAEL SOSA DPM [NO LOCAL MD] - Follow up tomorrow
== END 2018-04-07 00:51 | disposition home or self-care (01) ==
LOC: ER 21:09
DX: S93.401A Sprain of unspecified ligament of right ankle, initial encounter (principal); M79.5 Residual foreign body in soft tissue; M25.571 Pain in right ankle and joints of right foot; R11.0 Nausea; X50.0XXA Overexertion from strenuous movement or load, initial encounter
CPT/HCPCS: 99283; 73610; 73630; L1902

== ENCOUNTER 2018-05-08 10:04 | Emergency (ER) | payer OTHER ==
--- NOTE | 2018-05-08 11:06 | ER Document Report ---
ED Medical Screen (RME) - General Chief Complaint: Chest Tightness Stated Complaint: ABDOMINAL PAIN Time Seen by Provider: 05/08/18 11:02 TRAVEL OUTSIDE OF THE [place] IN LAST 30 DAYS: No - Related Data Allergies/Adverse Reactions: No Known Drug Allergies Allergy (Verified 05/08/18 10:04) Past Medical History - Social History Frequency of alcohol use: None Drug Abuse: None - Past Medical History Cardiac Medical History: Reports: Hx Hypercholesterolemia, Hx Hypertension Pulmonary Medical History: Reports: Hx Asthma Endocrine Medical History: Reports: Hx Diabetes Mellitus Type 2 - With neuropathy Renal/ Medical History: Denies: Hx Peritoneal Dialysis - Immunizations Immunizations up to date: Yes Physical Exam - Vital signs Vitals: Temp Pulse Resp BP Pulse Ox 99.0 F 115 H 18 157/96 H 97 05/08/18 10:15 05/08/18 10:15 05/08/18 10:15 05/08/18 10:15 05/08/18 10:15 Course - Re-evaluation Re-evalutation: 05/08/18 11:05 27-year-old man with multiple medical comorbidities who presents for a constellation of symptoms including chest tightness abdominal pain and some shortness of breath. I have seen and performed a rapid medical screening examination on this patient, workup has been initiated however there will require further evaluation reassessment and disposition determination from a secondary provider. - Vital Signs Vital signs: Temp Pulse Resp BP Pulse Ox 99.0 F 115 H 18 157/96 H 97 05/08/18 10:15 05/08/18 10:15 05/08/18 10:15 05/08/18 10:15 05/08/18 10:15
--- NOTE | 2018-05-08 11:26 | ER Document Report ---
ED General - General Chief Complaint: Chest Tightness Stated Complaint: ABDOMINAL PAIN Time Seen by Provider: 05/08/18 11:02 Mode of Arrival: Ambulatory Information source: Patient TRAVEL OUTSIDE OF THE [place] IN LAST 30 DAYS: No - HPI Notes: 27-year-old male with a history of type 2 diabetes, anxiety, hypertension and chronic back pain who does not take medications because he cannot afford it,peripheral neuropathies presents to the ED with complaints of having shortness of breath with chest tightness that started approximately 4 days ago, became progressively worse in the last day. States pain lasts for approximately 20-30 minutes and goes away denies any radiation of pain, patient states he normally takes melatonin last night he took nighttime cough medication to try and help him sleep because he ran out of melatonin, unsure if he had a reaction to this, states he noticed symptoms became worse after taking cough medication. Patient aside from hypertension does not have a cardiac history, non-smoker, does not know his family history due to being adopted. Denies fevers, chills, palpitations dyspnea, nausea, vomiting, diarrhea, abdominal pain, hematuria,blurred vision, double vision, loss of vision, speech changes, LH, dizziness, syncope, headaches, wheezing, ST, URI, neck pain, weakness, bowel or bladder dysfunction, saddle anesthesia, numbness or tingling in bilateral upper or lower extremities equally, muscle paralysis, weakness in bilateral upper or lower extremities equally or rash. Denies IV drug use. - Related Data Allergies/Adverse Reactions: No Known Drug Allergies Allergy (Verified 05/08/18 10:04) Past Medical History - General Information source: Patient - Social History Smoking Status: Current Some Day Smoker Frequency of alcohol use: None Drug Abuse: None Family History: Reviewed & Not Pertinent Patient has suicidal ideation: No Patient has homicidal ideation: No - Past Medical History Cardiac Medical History: Reports: Hx Hypercholesterolemia, Hx Hypertension Pulmonary Medical History: Reports: Hx Asthma Endocrine Medical History: Reports: Hx Diabetes Mellitus Type 2 - With neuropathy Renal/ Medical History: Denies: Hx Peritoneal Dialysis - Immunizations Immunizations up to date: Yes Review of Systems - Review of Systems Constitutional: No symptoms reported EENT: No symptoms reported Cardiovascular: See HPI Respiratory: See HPI Gastrointestinal: No symptoms reported Genitourinary: No symptoms reported Male Genitourinary: No symptoms reported Musculoskeletal: No symptoms reported Skin: No symptoms reported Hematologic/Lymphatic: No symptoms reported Neurological/Psychological: No symptoms reported Physical Exam - Vital signs Vitals: Temp Pulse Resp BP Pulse Ox 99.0 F 115 H 18 157/96 H 97 05/08/18 10:15 05/08/18 10:15 05/08/18 10:15 05/08/18 10:15 05/08/18 10:15 - Notes Notes: PHYSICAL EXAMINATION: GENERAL: Well-appearing, well-nourished and in no acute distress. Patient conversational and in no distress HEAD: Atraumatic, normocephalic. EYES: Pupils equal round and reactive to light, extraocular movements intact, sclera anicteric, conjunctiva are normal. ENT: Nares patent, oropharynx clear without exudates. Moist mucous membranes. NECK: Normal range of motion, supple without lymphadenopathy LUNGS: Breath sounds clear to auscultation bilaterally and equal. No wheezes rales or rhonchi. HEART: sinus tachycardia and rhythm without murmurs ABDOMEN: Soft, nontender, nondistended abdomen. No guarding, no rebound. No masses appreciated. Musculoskeletal: Normal range of motion, no pitting or edema. No cyanosis. NEUROLOGICAL: Cranial nerves grossly intact. Normal speech, normal gait. Nor mal sensory, motor exams. PERRLA, EOMI. Full motor and sensory function throughout. [employer] + 2 equal bilaterally in BUE. Tongue midline. No pronator drift. No ataxia. Neck with APROM. Raises eyebrows. Strength is 5 out of 5 in bilateral upper and lower extremities equally.Speaks in full sentences. No weakness on one side. Romberg gait steady able to walk straight line. Able to recall 5 objects. PSYCH: Normal mood, normal affect. SKIN: Warm, Dry, normal turgor, no rashes or lesions noted. Course - Re-evaluation Re-evalutation: 05/08/18 18:52 27-year-old male afebrile, slightly tachycardic with a heart rate of 106 who is in pain due to chronic back pain as well as neuropathies who was hypertensive presents for evaluation of shortness of breath or chest tightness that started approximately 4 days ago, patient had cough syrup last night which he thinks made him worse but it was injured which is his anxiety. CTA of chest negative for acute findings. Patient's heart score less than 3, patient was positive for peripheral due to tachycardia with feelings of shortness of breath. CBC negative for leukocytosis or anemia, CMP negative for hepatic renal dysfunctions, no electrolyte disturbances. Troponins x2-, EKG negative for STEMI or ST segment changes. Patient given IV fluids and due to pain becoming worse given IV pain medication, patient states his pain has been reduced down to a 6 out of 10. Patient states he is not taking his blood pressure medication due to the fact he cannot afford this, discussed with patient we will start him on lisinopril 5 mg which is on the $4 list at [facility]. Patient does have peripheral neuropathies which she does take his gabapentin for, stiff and had a pain tonight. Patient does not have a cardiac history. Discussed with patient to return to the ED if he has any other symptoms, his tachycardia could be due to his pain. Patient does have a primary care provider at [facility]. States he will make an appointment with him tomorrow I have reevaluated this patient multiple times and no significant life threatening changes, no signs of toxicity, sepsis or peritonitis are noted. The patient and I have discussed the diagnosis and risks, and we agree with discharging home and close follow-up. We also discussed returning to the Emergency Department immediately if new or worsening symptoms occur with the understanding that symptoms and presentations can change. At this time will discharge with return precautions and follow-up recommendations. Verbal discharge instructions given a the bedside and opportunity for questions given. After performing a Medical Screening Examination, I estimate there is LOW risk for RUPTURED ESOPHAGUS, PNEUMOTHORAX, PULMONARY EMBOLISM, ACUTE CORONARY SYNDROME, OR THORACIC AORTIC DISSECTION, thus I consider the discharge disposition reasonable. I have reevaluated this patient multiple times and no significant life threatening changes are noted. The patient and I have discussed the diagnosis and risks, and we agree with dis charging home with close follow-up. We also discussed returning to the Emergency Department immediately if new or worsening symptoms occur. We have discussed the symptoms which are most concerning (e.g., bloody sputum, worsening pain or shortness of breath) that necessitate immediate return. - Vital Signs Vital signs: Temp Pulse Resp BP Pulse Ox 99.0 F 109 H 20 150/106 H 98 05/08/18 10:15 05/08/18 18:46 05/08/18 18:46 05/08/18 18:46 05/08/18 18:46 - Laboratory Result Diagrams: 05/08/18 11:15 05/08/18 11:15 Laboratory results interpreted by me: 05/08/18 05/08/18 11:15 11:15 RBC 6.43 H MCV 77 L MCH 26.0 L RDW 14.6 H Glucose 350 H Discharge - Discharge Clinical Impression: Hyperglycemia, Tachycardia, Hypertension Condition: Stable Instructions: Chest Pain of Unclear Cause ([facility]), High Blood Pressure ([facility]), Hyperglycemia ([facility]) Additional Instructions: High Blood Pressure When your blood pressure was taken today it was elevated. Today's reading was 150/90 Pre-hypertension/Hypertension: The patient has been informed that they may have pre-hypertension or Hypertension based on a blood pressure reading in the emergency department. I recommend that the patient call the primary care provider listed on their discharge instructions or a physician of their choice this wee to arrange follow up for further evaluation of possible pre- hypertension or Hypertension. Sometimes, stress or illness causes a temporary elevation of your blood pressure. We suggest that you get your blood pressure measured three more times during the next few days to see if this is more than a temporary abnormality. If your blood pressure is greater than 150/90 on each occasion, you must have treatment. Some simple things you can do to help are: If you have blood pressure medicine but aren't using it regularly, start taking it again. Get some aerobic exercise for at least 20 minutes on a daily basis. (See your doctor before beginning a new exercise program.) Eat a low-fat diet. Lose excess weight. Avoid salty foods and avoid adding salt to any of the foods you eat. Avoid diet pills, decongestants, "energizing" herbs, and other medicines that elevate blood pressure. If left untreated, hypertension greatly enhances your risk for developing heart disease and strokes. Please don't ignore this problem. Chest Pain of Unclear Cause The exact cause of your chest pain isn't clear. Fortunately, there is no evidence of a dangerous medical condition. Further testing may be required to find the source of the pain. Most often, we find that this pain is coming from the chest wall -- the muscles or rib joints in the chest. But chest pain can come from the lung and lung lining, the esophagus, the heart valves or heart lining, and even the stomach or gallbladder. Rest. Eat lightly until the pain is gone. We may prescribe medicine for pain and inflammation. You should call the physician immediately if the pain radiates to the shoulder, jaw or arms; if you start to run a fever or develop a cough; or if you develop shortness of breath, or other new or alarming symptoms. Return immediately for any new or worsening symptoms. Follow up with primary care provider, call tomorrow to make followup appointment. Prescriptions: RX: Lisinopril [Prinivil] 5 mg PO DAILY #30 tablet Forms: Return to Work Referrals: SHARIFA DENNIS MD [ACTIVE STAFF] - Follow up tomorrow SIRISHA US MD [ACTIVE STAFF] - Follow up tomorrow
--- NOTE | 2018-05-08 11:37 | RADIOLOGY REPORT (SQ) ---
EXAM DESCRIPTION: CHEST SINGLE VIEW COMPLETED DATE/TIME: 05/08/2018 11:20 am REASON FOR STUDY: chest tightness COMPARISON: None. EXAM PARAMETERS: NUMBER OF VIEWS: One view. TECHNIQUE: Single frontal radiographic view of the chest acquired. RADIATION DOSE: NA LIMITATIONS: None. FINDINGS: LUNGS AND PLEURA: No opacities, masses or pneumothorax. No pleural effusion. MEDIASTINUM AND HILAR STRUCTURES: No masses. Contour normal. HEART AND VASCULAR STRUCTURES: Heart normal in size. Normal vasculature. BONES: No acute findings. HARDWARE: None in the chest. OTHER: No other significant finding. IMPRESSION: NO ACUTE RADIOGRAPHIC FINDING IN THE CHEST. TECHNICAL DOCUMENTATION: JOB ID: [id number] [employer]- All Rights Reserved Reading location - IP/workstation name: [email or web address]
[2018-05-08 11:47] LABS: ABSOLUTE BASOPHILS # (AUTO) 0.1 10^3/uL (0.0-0.2); ABSOLUTE EOSINOPHILS # (AUTO) 0.2 10^3/uL (0.0-0.6); ABSOLUTE LYMPHOCYTES (AUTO) 1.6 10^3/uL (0.5-4.7); ABSOLUTE MONOCYTES (AUTO) 0.4 10^3/uL (0.1-1.4); BASOPHILS % (AUTO) 0.9 % (0-2); EOSINOPHILS % (AUTO) 2.3 % (0-6); HEMATOCRIT 49.8 % (37.9-51.0); HEMOGLOBIN 16.7 g/dL (13.5-17.0); LYMPHOCYTES % (AUTO) 22.3 % (13-45); MEAN CORPUSCULAR HGB CONC 33.6 g/dL (32.0-36.0); MEAN CORPUSCULAR VOLUME 77 fl (80-97); PLATELET COUNT 269 10^3/uL (150-450); RED BLOOD COUNT 6.43 10^6/uL (4.35-5.55); RED CELL DISTRIBUTION WIDTH 14.6 % (11.5-14.0); SEGMENTED NEUTROPHILS % (AUTO) 68.5 % (42-78); TOTAL CELLS COUNTED % (AUTO) 100 %; WHITE BLOOD COUNT 7.3 10^3/uL (4.0-10.5)
[2018-05-08 12:05] LABS: ALANINE AMINOTRANSFERASE 31 U/L (21-72); ALKALINE PHOSPHATASE 108 U/L (38-126); ANION GAP 11 (5-19); ASPARTATE AMINO TRANSFERASE 23 U/L (17-59); BILIRUBIN,DIRECT 0.2 mg/dL (0.0-0.4); BILIRUBIN,TOTAL 0.3 mg/dL (0.2-1.3); BLOOD UREA NITROGEN 11 mg/dL (7-20); CALCIUM 9.4 mg/dL (8.4-10.2); CARBON DIOXIDE 26 mmol/L (22-30); CHLORIDE 101 mmol/L (98-107); CREATINE KINASE 141 U/L (55-170); GLUCOSE 350 mg/dL (75-110); POTASSIUM 4.1 mmol/L (3.6-5.0); TOTAL PROTEIN 6.9 g/dL (6.3-8.2)
[2018-05-08 12:26] LABS: CREATINE KINASE MB 3.38 ng/mL (<4.55)
[2018-05-08 12:27] LABS: TROPONIN I < 0.012 ng/mL
[2018-05-08 12:31] LABS: A TYPE INFLUENZA AG NEGATIVE (NEGATIVE); B INFLUENZA AG NEGATIVE (NEGATIVE)
--- NOTE | 2018-05-08 13:21 | RADIOLOGY REPORT (SQ) ---
EXAM DESCRIPTION: CTA CHEST COMPLETED DATE/TIME: 05/08/2018 1:03 pm REASON FOR STUDY: tachycardia with sob, sudden onset COMPARISON: None. TECHNIQUE: CT scan of the chest performed using helical scanning technique with dynamic intravenous contrast injection. Images reviewed with lung, soft tissue and bone windows. Reconstructed coronal and sagittal MPR images reviewed. Additional 3 dimensional post-processing performed to develop Maximal Intensity Projection images (FL P). All images stored on PACS. All CT scanners at this facility use dose modulation, iterative reconstruction, and/or weight based d osing when appropriate to reduce radiation dose to as low as reasonably achievable (ALARA). [facility]: Dose Right [facility]: CareDose [facility]: Dose Right [facility]: Teradose 4D [facility]: Flomio CONTRAST TYPE AND DOSE: contrast/concentration: Isovue 350.00 mg/ml; Total Contrast Delivered: 84.0 ml; Total Saline Delivered: 80.0 ml Contrast bolus optimized for the pulmonary arteries. Not diagnostic for the aorta. RENAL FUNCTION: BUN 11 creatinine 0.85 RADIATION DOSE: CT Rad equipment meets quality standard of care and radiation dose reduction techniq ues were employed. CTDIvol: 6.6 - 41.6 mGy. DLP: 1708 mGy-cm. . LIMITATIONS: None. FINDINGS: LUNGS AND PLEURA: No masses, infiltrates, or pneumothorax. No pleural effusions or pleura l calcifications. AORTA AND GREAT VESSELS: No aneurysm. Contrast bolus not optimized for the aorta. HEART: No pericardial effusion. No significant coronary artery calcifications. PULMONARY ARTERIES: No emboli visualized in the main pulmonary arteries or the segmental branches. HILAR AND MEDIASTINAL STRUCTURES: No identified masses or abnormal nodes. HARDWARE: None in the chest. UPPER ABDOMEN: Fatty infiltration of the liver with areas of focal fatty sparing. THYROID AND OTHER SOFT TISSUES: No masses. No adenopathy. BONES: No acute or significant finding. 3D MIPS: Confirm above findings. OTHER: No other significant finding. IMPRESSION: 1. There is no evidence of pulmonary embolus. 2. Fatty infiltration of the liver. COMMENT: Quality ID # [id number]: Final reports with documentation of one or more dose reduction techniques (e.g., Automated exposure control, adjustment of the mA and/or kV according to patient size, use of iterative reconstruction technique) TECHNICAL DOCUMENTATION: JOB ID: [id number]- All Rights Reserved Reading location - IP/workstation name: [email or web address]
--- NOTE | 2018-05-08 13:40 | EKG REPORT ---
SEVERITY:- ABNORMAL ECG - SINUS TACHYCARDIA NONSPECIFIC T ABNORMALITIES, DIFFUSE LEADS : Confirmed by: Estelle Bowen MD 08-May-2018 13:39:16
[2018-05-08] MEDS: NORMAL SALINE 1000 ML 1,000 ML IV PRN ×2 (15:08→16:45)
[2018-05-08] MEDS ORDERED: NORMAL SALINE 1000 ML 1,000 ML IV PRN (16:31)
[2018-05-08] MEDS ORDERED: INSULIN REG, HUMAN 100 UNIT/ML 3 ML VIAL (PYX) IV ONE (16:31)
[2018-05-08] MEDS ORDERED: HYDRALAZINE HCL INJ/PF 20 MG/1 ML SDV IV ONE (16:41)
[2018-05-08] MEDS ORDERED: KETOROLAC TROMETHAMINE INJ/PF 30 MG/1 ML SDV IV ONE (17:41)
[2018-05-08] MEDS ORDERED: MORPHINE SULFATE 10 MG/ML INJ IV ONE (17:42)
[2018-05-08] MEDS ORDERED: FENTANYL CITRATE INJ/PF 100 MCG/2 ML AMPUL IV ONE (17:59)
[2018-05-08 18:46] VITALS: BP 150/106
== END 2018-05-08 18:47 | disposition home or self-care (01) ==
LOC: ER 10:04
DX: E11.65 Type 2 diabetes mellitus with hyperglycemia (principal); I10 Essential (primary) hypertension; R07.9 Chest pain, unspecified; R00.0 Tachycardia, unspecified; R10.9 Unspecified abdominal pain; F17.200 Nicotine dependence, unspecified, uncomplicated; F41.9 Anxiety disorder, unspecified; G89.29 Other chronic pain; M54.9 Dorsalgia, unspecified
CPT/HCPCS: 93005; 99285; 96361; 96374; 96375; 36415; 82553; 82550; 85025; 80053; 84484; 87804; 71045; 71275; 93010; J3010; J0360; J1885; J2270; J7030

== ENCOUNTER 2018-06-25 21:17 | Emergency (ER) | payer OTHER ==
--- NOTE | 2018-06-25 23:38 | ER Document Report ---
ED Medical Screen (RME) - General Chief Complaint: Leg Swelling Stated Complaint: SWOLLEN LEFT FOOT/ANKLE Time Seen by Provider: 06/25/18 23:12 Primary Care Provider: MAISHA FLORES MD [Primary Care Provider] - Follow up as needed Notes: I have treated and performed a rapid initial assessment of this patient. A comprehensive ED assessment and evaluation of the patient, analysis of test results and completion of medical decision making process will be conducted by additional ED providers. PHYSICAL EXAMINATION: GENERAL: Well-appearing, well-nourished and in no acute distress. A&Ox4. Answers questions appropriately. LUNGS: Breath sounds clear to auscultation bilaterally and equal. No wheezes rales or rhonchi. HEART: Regular rate and rhythm without murmurs, rubs, gallops. ABDOMEN: Soft, nondistended abdomen. No guarding, no rebound. Normal bowel sounds present. No CVA tenderness bilaterally. + mild epigastric tenderness (cannot elicit thorough abd exam w/o table, however). Extremities: No cyanosis, clubbing, or edema b/l. NEUROLOGICAL: Normal speech, normal gait. PSYCH: Normal mood, normal affect. TRAVEL OUTSIDE OF THE [place] IN LAST 30 DAYS: No - Related Data Allergies/Adverse Reactions: No Known Drug Allergies Allergy (Verified 05/08/18 10:04) Past Medical History - Social History Chew tobacco use (# tins/day): Yes - once a month Frequency of alcohol use: Occasional Drug Abuse: Marijuana - Past Medical History Cardiac Medical History: Reports: Hx Hypercholesterolemia, Hx Hypertension Pulmonary Medical History: Reports: Hx Asthma Endocrine Medical History: Reports: Hx Diabetes Mellitus Type 2 - With neuropathy Renal/ Medical History: Denies: Hx Peritoneal Dialysis - Immunizations Immunizations up to date: Yes Physical Exam - Vital signs Vitals: Temp Pulse Resp BP Pulse Ox 99.9 F 88 18 166/103 H 100 06/25/18 21:45 06/25/18 21:45 06/25/18 21:45 06/25/18 21:45 06/25/18 21:45 Course - Vital Signs Vital signs: Temp Pulse Resp BP Pulse Ox 99.9 F 88 18 166/103 H 100 06/25/18 21:45 06/25/18 21:45 06/25/18 21:45 06/25/18 21:45 06/25/18 21:45 Doctor's Discharge - Discharge Referrals: MAISHA FLORES MD [Primary Care Provider] - Follow up as needed
--- NOTE | 2018-06-26 00:22 | RADIOLOGY REPORT (SQ) ---
EXAM DESCRIPTION: XR FOOT 3 OR MORE VIEWS COMPLETED DATE/TME: 06/25/2018 23:13 CLINICAL HISTORY: 27 years, Male, pain, swelling COMPARISON: None. NUMBER OF VIEWS: 3 TECHNIQUE: 3 view left foot LIMITATIONS: None. FINDINGS: Hallux valgus deformity with degenerative changes of the great toe. Osteopenia. No radiographic evidence for acute fracture or dislocation. Chronic changes to the ankle mortise. Soft tissues are unremarkable Small calcaneal spurs. IMPRESSION: No acute osseous abnormality. Chronic changes, as above copyright 2010 [employer]- All Rights Reserved
--- NOTE | 2018-06-26 02:16 | RADIOLOGY REPORT (SQ) ---
EXAM: Ultrasound extremity veins unilateral CLINICAL DATA: 27-year-old male with left calf pain and swelling and history of blood clots. TECHNICAL DATA: Grayscale and color Doppler images of the deep veins of the left lower extremity were performed on 06/25/2018 at 11:20 PM. Comparisons: None. FINDINGS: Grayscale and color Doppler images of the deep veins of the left lower extremity was performed. The grayscale images reveal normal compressibility of the deep veins. The Doppler images reveal normal flow, phasicity with respiration and normal augmentation with compression. The color flow images reveal normal saturation of flow within the deep veins of the left lower extremity. No intraluminal echoes are identified to suggest nonocclusive thrombus. The superficial veins are patent. No additional abnormalities are identified. A cursory evaluation of the right common femoral vein reveals patency, normal compressibility, normal flow and phasicity with respiration. IMPRESSION: No evidence of deep venous thrombosis in the left lower extremity.
--- NOTE | 2018-06-26 03:22 | ER Document Report ---
ED General - General Chief Complaint: Leg Swelling Stated Complaint: SWOLLEN LEFT FOOT/ANKLE Time Seen by Provider: 06/25/18 23:12 Primary Care Provider: MAISHA FLORES MD [Primary Care Provider] - 06/30/18 Notes: Patient is a 27-year-old male who presents with complaint of swelling in his lower extremities. Patient says it is mainly in his left leg. He has no history of DVT or PE. He has had some edema in his extremities before however it usually went. He does not take any water pills. He has worn compression hose in the past but has not been wearing them recently. No chest pain. No shortness of breath. No other complaints at this time. No fevers. A diabetic. TRAVEL OUTSIDE OF THE [place] IN LAST 30 DAYS: No - Related Data Allergies/Adverse Reactions: No Known Drug Allergies Allergy (Verified 05/08/18 10:04) Past Medical History - Social History Smoking Status: Never Smoker Chew tobacco use (# tins/day): Yes - once a month Frequency of alcohol use: Occasional Drug Abuse: Marijuana Family History: Reviewed & Not Pertinent Patient has suicidal ideation: No Patient has homicidal ideation: No - Past Medical History Cardiac Medical History: Reports: Hx Hypercholesterolemia, Hx Hypertension Pulmonary Medical History: Reports: Hx Asthma Endocrine Medical History: Reports: Hx Diabetes Mellitus Type 2 - With neuropathy Renal/ Medical History: Denies: Hx Peritoneal Dialysis - Immunizations Immunizations up to date: Yes Review of Systems - Review of Systems Notes: My Normal Review Basic REVIEW OF SYSTEMS: CONSTITUTIONAL : Denies fever, chills, or sweats. Denies recent illness. CARDIOVASCULAR: Denies chest pain. RESPIRATORY: Denies cough, cold, or chest congestion. Denies shortness of breath, difficulty breathing, or wheezing. GENITOURINARY: Denies difficulty urinating, painful urination, burning, frequency, or blood in urine. MUSCULOSKELETAL: Left lower extremity swelling SKIN: Denies rash or skin lesions. NEUROLOGICAL: Denies altered mental status or loss of consciousness. D ALL OTHER SYSTEMS REVIEWED AND NEGATIVE. Physical Exam - Vital signs Vitals: Temp Pulse Resp BP Pulse Ox 99.9 F 88 18 166/103 H 100 06/25/18 21:45 06/25/18 21:45 06/25/18 21:45 06/25/18 21:45 06/25/18 21:45 - Notes Notes: General Appearance: Well nourished, alert, cooperative, no acute distress, no obvious discomfort. Appearing. Vitals: reviewed, See vital signs table. Head: no swelling or tenderness to the head Eyes: PERRL, EOMI, Conjuctiva clear Mouth: No decreasd moisture Extremities: strength 5/5 in all extremities, good pulses in all extremities, patient has 1+ pitting edema in the left lower extremity. Right lower extremity has trace edema. Good pulses in the feet. No redness to the extremities. No abnormal warmth. Skin: warm, dry, appropriate color, no rash Neuro: speech clear, oriented x 3, normal affect, responds appropriately to questions. Course - Re-evaluation Re-evalutation: 06/26/18 06:34 At this time I feel the patient is safe to be discharged home. I encouraged him to return to ER immediately if he has increasing worsening swelling, fevers, spr eading redness in the leg, or any signs of infection. Encouraged him to wear compression hose to help reduce edema to the leg and keep them elevated when sitting or laying down. DVT studies negative. Patient agrees the plan will be discharged home. Dictation of this chart was performed using voice recognition software; therefore, there may be some unintended grammatical errors. - Vital Signs Vital signs: Temp Pulse Resp BP Pulse Ox 98.1 F 116 H 18 143/97 H 99 06/26/18 04:00 06/26/18 04:00 06/26/18 04:00 06/26/18 04:00 06/26/18 04:00 Discharge - Discharge Clinical Impression: Leg edema, left Condition: Good Disposition: HOME, SELF-CARE Additional Instructions: Your ultrasound did not show for evidence of blood clot in your leg. Please wear compression stockings on your legs. This will help prevent further edema. Please have your legs elevated when you are sitting in a chair or in a bed. Please return to the ER immediately if you have fevers, redness , abnormal warmth, or any signs of infection. Please follow-up with your doctor on Saturday for reevaluation. Referrals: MAISHA FLORES MD [Primary Care Provider] - 06/30/18
[2018-06-26 04:01] VITALS: BP 143/97
== END 2018-06-26 04:01 | disposition home or self-care (01) ==
LOC: ER 21:17
DX: R60.0 Localized edema (principal); E11.40 Type 2 diabetes mellitus with diabetic neuropathy, unspecified; I10 Essential (primary) hypertension; J45.909 Unspecified asthma, uncomplicated; F12.10 Cannabis abuse, uncomplicated; Z72.0 Tobacco use
CPT/HCPCS: 93971; 99284

== ENCOUNTER 2018-08-07 03:28 | Emergency (ER) | payer OTHER ==
--- NOTE | 2018-08-07 06:22 | ER Document Report ---
ED General - General Chief Complaint: Other Stated Complaint: NAUSEA Time Seen by Provider: 08/07/18 06:21 Primary Care Provider: LUCIE ESPINOZA MD [COMMUNITY BASED STAFF] - Follow up in 3-5 days (or your primary care. ) Notes: Patient is a 28-year-old male with diabetes that presents to the emergency department for chief complaint of insomnia. Patient reports he has been having difficulty sleeping for about 3 weeks now, and it has been worse over the past week, stating he is only had about 5 hours of sleep over that period of time. He has been trying to take irae-enn-hjfnhpz melatonin without much relief. He states he previously was on gabapentin and had a tapered off, but that was last month, he was on it for diabetic neuropathy, which seems to be worse more recently as well. He did contact his primary care to have referral to a sleep clinic, but stated that they wanted to see him before, and he has not seen his primary to help set up that appointment. He has not taken any other qybr-khe-kxvsarx medications to try to help with his sleep. He has had some nausea and some lightheadedness, but denies having any fevers, chills, night sweats, headache, vomiting, abdominal pain, dysuria, hematuria. Past Medical History: Diabetes mellitus, diabetic neuropathy Past Surgical History: Denies surgical history Social History: Denies tobacco, alcohol or drug use. Family History: Reviewed and noncontributory for presenting illness Allergies: Reviewed, see documented allergy list. REVIEW OF SYSTEMS: Other than noted above, the 12 point review of systems was reviewed with the patient and were negative, all pertinent findings are included in the HPI. PHYSICAL EXAMINATION: Vital signs reviewed, nursing noted reviewed. GENERAL: Well-appearing, well-nourished and in no acute distress. HEAD: Atraumatic, normocephalic. EYES: Eyes appear normal, extraocular movements intact, sclera anicteric, conjunctiva are normal. ENT: nares patent, oropharynx clear without exudates. Moist mucous membranes. NECK: Normal range of motion, supple without lymphadenopathy LUNGS: Breath sounds clear to auscultation bilaterally and equal. No wheezes rales or rhonchi. HEART: Regular rate and rhythm without murmurs ABDOMEN: Soft, nontender, normoactive bowel sounds. No rebound, guarding, or rigidity. No masses appreciated. EXTREMITIES: Nontender, good range of motion, no pitting or edema. NEUROLOGICAL: No focal neurological deficits. Moves all extremities spontaneously Motor and sensory grossly intact on exam. PSYCH: Normal mood, normal affect. SKIN: Warm, Dry, normal turgor, no rashes or lesions noted on exposed skin TRAVEL OUTSIDE OF THE [place] IN LAST 30 DAYS: No - Related Data Allergies/Adverse Reactions: No Known Drug Allergies Allergy (Verified 05/08/18 10:04) Past Medical History - Social History Smoking Status: Never Smoker Family History: Reviewed & Not Pertinent Patient has suicidal ideation: No Patient has homicidal ideation: No - Past Medical History Cardiac Medical History: Reports: Hx Hypercholesterolemia, Hx Hypertension Pulmonary Medical History: Reports: Hx Asthma Endocrine Medical History: Reports: Hx Diabetes Mellitus Type 2 - With neuropathy Renal/ Medical History: Denies: Hx Peritoneal Dialysis - Immunizations Immunizations up to date: Yes Physical Exam - Vital signs Vitals: Temp Pulse Resp BP Pulse Ox 98 F 119 H 20 130/86 H 100 08/07/18 03:38 08/07/18 03:38 08/07/18 03:38 08/07/18 03:38 08/07/18 03:38 Course - Re-evaluation Re-evalutation: Patient seen and examined vital signs reviewed. Laboratory data and imaging were ordered as appropriate for the patient's presenting symptoms and complaint, with consideration of any critical or life threatening conditions that may be associated with their obtained history and exam as noted above. Results were reviewed when available and demonstrated mild hyperglycemia, and hemoconcentration, likely due to mild dehydration as the patient's diet has been poor recently The patient was re-evaluated and was stable Evaluation was most consistent with insomnia, will advise rehydration, give a prescription for hydroxyzine and follow-up with primary care. Results were discussed with the patient at this point, after careful consideration I feel that that patient can be discharged from the emergency department, the patient was educated treatments and reasons to return to the emergency department based on their presumed diagnosis as noted above, they were advised to followup with a primary care physician in 2-3 days. Patient was agreeable to plan of care. *Note is created using voice recognition software and may contain spelling, syntax or grammatical errors. Laboratory 08/07/18 08/07/18 07:19 07:19 WBC 10.0 RBC 6.72 H Hgb 17.3 H Hct 50.9 MCV 76 L MCH 25.7 L MCHC 33.9 RDW 14.9 H Plt Count 383 Seg Neutrophils % 65.5 Lymphocytes % 25.5 Monocytes % 6.7 Eosinophils % 0.9 Basophils % 1.4 Absolute Neutrophils 6.5 Absolute Lymphocytes 2.5 Absolute Monocytes 0.7 Absolute Eosinophils 0.1 Absolute Basophils 0.1 Sodium 138.1 Potassium 4.6 Chloride 101 Carbon Dioxide 25 Anion Gap 12 BUN 16 Creatinine 0.73 Est GFR ( Amer) > 60 Est GFR (Non-Af Amer) > 60 Glucose 276 H Calcium 10.7 H - Vital Signs Vital signs: Temp Pulse Resp BP Pulse Ox 97.9 F 115 H 18 127/65 H 99 08/07/18 07:21 08/07/18 07:21 08/07/18 07:21 08/07/18 07:21 08/07/18 07:21 - Laboratory Result Diagrams: 08/07/18 07:19 08/07/18 07:19 Laboratory results interpreted by me: 08/07/18 08/07/18 07:19 07:19 RBC 6.72 H Hgb 17.3 H MCV 76 L MCH 25.7 L RDW 14.9 H Glucose 276 H Calcium 10.7 H Discharge - Discharge Clinical Impression: Hyperglycemia Insomnia Qualifiers: Insomnia type: unspecified Qualified Code(s): G47.00 - Insomnia, unspecified Condition: Stable Disposition: HOME, SELF-CARE Instructions: Insomnia ([facility]) Prescriptions: Hydroxyzine HCl [Atarax 50 mg Tablet] 50 mg PO QHS PRN #15 tablet PRN Reason: insomnia Referrals: LUCIE ESPINOZA MD [COMMUNITY BASED STAFF] - Follow up in 3-5 days (or your primary care. )
[2018-08-07 07:35] LABS: ABSOLUTE BASOPHILS # (AUTO) 0.1 10^3/uL (0.0-0.2); ABSOLUTE EOSINOPHILS # (AUTO) 0.1 10^3/uL (0.0-0.6); ABSOLUTE LYMPHOCYTES (AUTO) 2.5 10^3/uL (0.5-4.7); ABSOLUTE MONOCYTES (AUTO) 0.7 10^3/uL (0.1-1.4); ABSOLUTE NEUT (AUTO) 6.5 10^3/uL (1.7-8.2); BASOPHILS % (AUTO) 1.4 % (0-2); EOSINOPHILS % (AUTO) 0.9 % (0-6); HEMATOCRIT 50.9 % (37.9-51.0); HEMOGLOBIN 17.3 g/dL (13.5-17.0); LYMPHOCYTES % (AUTO) 25.5 % (13-45); MEAN CORPUSCULAR HEMOGLOBIN 25.7 pg (27.0-33.4); MEAN CORPUSCULAR HGB CONC 33.9 g/dL (32.0-36.0); MEAN CORPUSCULAR VOLUME 76 fl (80-97); MONOCYTES % (AUTO) 6.7 % (3-13); PLATELET COUNT 383 10^3/uL (150-450); RED BLOOD COUNT 6.72 10^6/uL (4.35-5.55); RED CELL DISTRIBUTION WIDTH 14.9 % (11.5-14.0); SEGMENTED NEUTROPHILS % (AUTO) 65.5 % (42-78); TOTAL CELLS COUNTED % (AUTO) 100 %
[2018-08-07 07:54] LABS: ANION GAP 12 (5-19); BLOOD UREA NITROGEN 16 mg/dL (7-20); CALCIUM 10.7 mg/dL (8.4-10.2); CARBON DIOXIDE 25 mmol/L (22-30); CHLORIDE 101 mmol/L (98-107); GLUCOSE 276 mg/dL (75-110); POTASSIUM 4.6 mmol/L (3.6-5.0); SODIUM 138.1 mmol/L (137-145)
[2018-08-07 08:34] VITALS: BP 105/58
== END 2018-08-07 08:37 | disposition home or self-care (01) ==
LOC: ER 03:28
DX: E11.65 Type 2 diabetes mellitus with hyperglycemia (principal); R11.0 Nausea; G47.00 Insomnia, unspecified; E78.00 Pure hypercholesterolemia, unspecified; I10 Essential (primary) hypertension
CPT/HCPCS: 36415; 80048; 85025; 99283

== ENCOUNTER 2018-08-10 22:25 | Emergency (ER) | payer OTHER ==
--- NOTE | 2018-08-11 00:07 | RADIOLOGY REPORT (SQ) ---
EXAM DESCRIPTION: Right ankle RadLex: XR ANKLE 3 OR MORE VIEWS Views: 3 CLINICAL HISTORY: 28 years Male, trauma COMPARISON: None. FINDINGS: Negative for acute fracture, dislocation, or radiopaque foreign body. IMPRESSION: 1. No acute findings.
[2018-08-11] MEDS ORDERED: IBUPROFEN 600 MG TABLET PO ONE (01:30)
[2018-08-11 01:34] VITALS: BP 121/72
--- NOTE | 2018-08-11 01:36 | ER Document Report ---
ED Extremity Problem, Lower - General Chief Complaint: Ankle Pain Stated Complaint: ANKLE PAIN Time Seen by Provider: 08/11/18 01:20 Mode of Arrival: Ambulatory Information source: Patient TRAVEL OUTSIDE OF THE [place] IN LAST 30 DAYS: No - HPI Patient complains to provider of: Pain, Swelling Location: Ankle Notes: Patient is here with complaints of right ankle pain. The patient has a history of diabetes and has chronic neuropathy to his legs. He states that approximately a week ago he tripped thinks he may have injured his right ankle. For the last few days has been having increasing anterior ankle pain and feels like it is swollen. He denies any leg or calf swelling. He denies any fever or redness. He denies any numbness, tingling, weakness. Pain is constant, moderate, worse with ambulation and walking, better with rest. He denies any recent long trips or surgeries, no cancer, no history of DVT or PE. He denies any chest pain or shortness of breath. He denies any nausea, vomiting, diarrhea. He denies any other complaints at this time. - Related Data Allergies/Adverse Reactions: No Known Drug Allergies Allergy (Verified 08/11/18 01:23) Past Medical History - Social History Smoking Status: Unknown if Ever Smoked Family History: Reviewed & Not Pertinent - Past Medical History Cardiac Medical History: Reports: Hx Hypercholesterolemia, Hx Hypertension Pulmonary Medical History: Reports: Hx Asthma Endocrine Medical History: Reports: Hx Diabetes Mellitus Type 2 - With neuropathy Renal/ Medical History: Denies: Hx Peritoneal Dialysis - Immunizations Immunizations up to date: Yes Review of Systems - Review of Systems -: Yes All other systems reviewed and negative Physical Exam - Vital signs Vitals: Temp Pulse BP Pulse Ox 98.2 F 122 H 148/80 H 93 08/10/18 22:45 08/10/18 22:45 08/10/18 22:45 08/10/18 22:45 - Notes Notes: GENERAL: alert, cooperative, nontoxic, no distress. HEAD: normocephalic, atraumatic EYES: conjunctiva pink without discharge, no external redness or swelling. EARS: no external swelling, no external redness NOSE: atraumatic, no external swelling MOUTH/THROAT: mucous membranes moist and pink NECK: soft, supple, full range of motion, no meningismus. CHEST: no distress, lungs clear and equal throughout. No wheezing, rales, rhonchi. CARDIAC: regular rate and rhythm, no murmur, normal capillary refill, normal pulses. BACK: full range of motion, no CVA tenderness. EXTREMITIES: full range of motion of all extremities. No redness, no swelling. Mild tenderness palpation of the right anterior ankle. No medial or lateral malleolar tenderness. Achilles is intact. Normal Renteria's test. Normal pulse and sensation distally. Normal cap refill. No proximal tib-fib tenderness. No calf tenderness or swelling. NEURO: alert and oriented 3, no focal deficits, full range of motion of all extremities. PYSCH: appropriate mood, affect. Patient is cooperative. SKIN: pink, warm, dry, no rash. Course - Re-evaluation Re-evalutation: 08/11/18 01:33 Patient is nontoxic-appearing with stable vitals. Patient is here with complaints of right ankle pain. He states that he tripped and fell about a week ago and has had increasing pain over the last few days. He has a benign exam with no obvious instability, no redness or swelling, normal pulse and sensation. No calf pain or swelling. The patient recently had a venous Doppler which was negative. No chest pain or shortness of breath. Patient had x-rays of the right ankle which were negative for acute fracture. He has no fever, redness or signs of infection. This point the patient will be placed in an Matt wrap, he walks with a cane already. He will be given a dose of Motrin in the emergency department will be discharged home with a prescription for Naprosyn. Referral to primary care doctor or orthopedics if not better in 1 week, sooner for worsening pain, fever, redness, numbness, tingling, weakness, any further concerns. The patient's emergency department workup and current diagnosis were explained to the patient and or family. Follow-up instructions were provided. Medications if prescribed were discussed. Instructions for when to return to the emergency department including specific worrisome symptoms were discussed with the patient and/or family. - Vital Signs Vital signs: Temp Pulse Resp BP Pulse Ox 98.2 F 122 H 148/80 H 93 08/10/18 22:45 08/10/18 22:45 08/10/18 22:45 08/10/18 22:45 - Diagnostic Test Radiology reviewed: Image reviewed, Reports reviewed - Right ankle negative Procedures - Immobilization Right ankle Immobilizer type: Matt wrap Performed by: PCT Post-Proc Neuro Vasc Exam: Normal, Unchanged from pre-exam Alignment checked and good: Yes Discharge - Discharge Clinical Impression: Right ankle sprain Qualifiers: Encounter type: initial encounter Involved ligament of ankle: unspecified ligament Qualified Code(s): S93.401A - Sprain of unspecified ligament of right ankle, initial encounter Condition: Stable Disposition: HOME, SELF-CARE Instructions: Sprained Ankle ([facility]) Additional Instructions: Take medication as prescribed. Wear Matt wrap as needed. Rest, ice, elevate. Follow-up if not better in 1 week, sooner for worsening pain, fever, redness, numbness, tingling, weakness, any further concerns. Prescriptions: Naproxen [Naprosyn] 500 mg PO BID #20 tablet Forms: Elevated Blood Pressure, Smoking Cessation Education Referrals: ALEJO SOUZA MD [ACTIVE STAFF] - Follow up as needed
== END 2018-08-11 01:38 | disposition home or self-care (01) ==
LOC: ER 22:25
DX: S93.401A Sprain of unspecified ligament of right ankle, initial encounter (principal); E11.40 Type 2 diabetes mellitus with diabetic neuropathy, unspecified; W01.0XXA Fall on same level from slipping, tripping and stumbling without subsequent striking against object, initial encounter; E78.00 Pure hypercholesterolemia, unspecified; I10 Essential (primary) hypertension
CPT/HCPCS: 82962; 99283

== ENCOUNTER 2018-08-25 04:56 | Emergency (ER) | payer OTHER ==
[2018-08-25] MEDS ORDERED: LEVALBUTEROL HCL NEB 1.25 MG/3 ML AMPUL NEB ONE (05:14)
[2018-08-25] MEDS ORDERED: NORMAL SALINE 1000 ML 1,000 ML IV ONE ×2 (05:15→06:45)
--- NOTE | 2018-08-25 05:16 | ER Document Report ---
ED General - General Chief Complaint: Shortness Of Breath Stated Complaint: DIFFICULTY BREATHING Time Seen by Provider: 08/25/18 05:10 Notes: Patient is a 28-year-old male that comes to the emergency department for chief complaint of cough, shortness of breath. Symptoms started this morning, he states he felt like he could not stop coughing. He states that he felt like he was "having a panic attack". He denies chest pain except for when he coughs. He denies fever/chills, vomiting. Past medical history of hypertension, diabetes, neuropathy, tonsillectomy, and remote history of asthma. He denies smoking. He denies recreational drugs except occasional marijuana. TRAVEL OUTSIDE OF THE [place] IN LAST 30 DAYS: No - Related Data Allergies/Adverse Reactions: No Known Drug Allergies Allergy (Verified 08/25/18 05:12) Past Medical History - General Information source: Patient - Social History Smoking Status: Never Smoker Drug Abuse: Marijuana Lives with: Family Family History: Reviewed & Not Pertinent - Past Medical History Cardiac Medical History: Reports: Hx Hypercholesterolemia, Hx Hypertension Pulmonary Medical History: Reports: Hx Asthma Endocrine Medical History: Reports: Hx Diabetes Mellitus Type 2 - With neuropathy Renal/ Medical History: Denies: Hx Peritoneal Dialysis - Immunizations Immunizations up to date: Yes Review of Systems - Review of Systems Constitutional: No symptoms reported EENT: No symptoms reported Cardiovascular: No symptoms reported Respiratory: See HPI Gastrointestinal: No symptoms reported Genitourinary: No symptoms reported Male Genitourinary: No symptoms reported Musculoskeletal: No symptoms reported Skin: No symptoms reported Hematologic/Lymphatic: No symptoms reported Neurological/Psychological: No symptoms reported Physical Exam - Vital signs Vitals: Temp Pulse Resp BP Pulse Ox 97.5 F 131 H 19 122/104 H 98 08/25/18 04:59 08/25/18 04:59 08/25/18 04:59 08/25/18 04:59 08/25/18 04:59 - Notes Notes: GENERAL: Alert, interacts well. HEAD: Normocephalic, atraumatic. EYES: Pupils equal, round, and reactive to light. Extraocular movements intact. ENT: Oral mucosa moist, tongue midline. Oropharynx unremarkable. Airway patent. Nares patent, no nasal septal hematoma, TM's intact. NECK: Full range of motion. Supple. Trachea midline. LUNGS: Expiratory wheezes throughout HEART: Tachycardia, normal rhythm, no murmur ABDOMEN: Soft, non-tender. Non-distended. Bowel sounds present in all 4 quadrants. GENITOURINARY: Deferred EXTREMITIES: Moves all 4 extremities spontaneously. No edema, normal radial and dorsalis pedis pulses bilaterally. No cyanosis. BACK: no cervical, thoracic, lumbar midline tenderness. No saddle anesthesia, normal distal neurovascular exam. NEUROLOGICAL: Alert and oriented x3. Normal speech. [cranial nerves II through XII grossly intact]. PSYCH: Speaks rapidly and anxiously SKIN: Warm, dry, normal turgor. No rashes or lesions noted. Course - Re-evaluation Re-evalutation: Initially patient's heart rate is in the 130s, he is very anxious, he has some tachypnea, he does have expiratory wheezing and coughing episodes as well. Abdomen is soft and benign, remaining physical examination is unremarkable. He does not have a fever. On reevaluation after Xopenex patient's wheezing has almost completely resolved, tachycardia slightly improved, he was given IV fluids as well. He states he is breathing better. He does have some expiratory wheezing still. CBC, chemistry unremarkable except for hyperglycemia without acidosis. Chest x-ray unremarkable. Patient is asking for something to help him calm down, he was given a little bit of Ativan, he was also given a DuoNeb at this time. On reevaluation again, wheezing is resolved. Patient has mild tachycardia. Discussed with patient. He has no reported risk factors for pulmonary embolism, however he does not know his family history because he was adopted. He states he had a CAT scan of the chest in May because of the same or similar symptoms, this was negative. Decision was made to proceed with d-dimer instead, this was negative. On reevaluation's patient heart rate is 115 and he recently received a DuoNeb. Based on his repeated evaluations I suspect this is a asthma exacerbation with a component of anxiety but I have low suspicion of ACS, pulmonary embolism, dissection, or pneumonia based on his work-up and evaluation. Discussed negative d-dimer, options. After discussion of options decision was made to discharge patient with albuterol inhaler, prednisone, precautions, follow-up instructions. - Vital Signs Vital signs: Temp Pulse Resp BP Pulse Ox 97.9 F 131 H 25 H 149/104 H 97 08/25/18 07:50 08/25/18 04:59 08/25/18 07:49 08/25/18 07:49 08/25/18 07:49 - Laboratory Result Diagrams: 08/25/18 05:35 08/25/18 05:35 Laboratory results interpreted by me: 08/25/18 08/25/18 05:35 05:35 RBC 6.65 H MCV 76 L MCH 25.5 L RDW 15.1 H Glucose 344 H Discharge - Discharge Clinical Impression: Wheezing, Shortness of breath, Cough, Anxiety Condition: Stable Disposition: HOME, SELF-CARE Additional Instructions: Your evaluation is most consistent with an asthma exacerbation. Your chest x-ray and work-up did not show any concerning findings at this time except elevated blood sugar. Use the albuterol inhaler with spacer as prescribed, use the prednisone as prescribed, avoid carbohydrates/sugary foods while taking this. Follow-up with your primary care provider. Return if you worsen including difficulty breathing, fever, vomiting, chest pain, or any other concerning or worsening symptoms. Prescriptions: Albuterol Sulfate [Proair HFA Inhalation Aerosol 8.5 gm MDI] 2 puff IH Q4H PRN #1 mdi PRN Reason: Prednisone [Deltasone 20 mg Tablet] 3 tab PO DAILY 5 Days #15 tablet
[2018-08-25 06:02] LABS: ABSOLUTE EOSINOPHILS # (AUTO) 0.3 10^3/uL (0.0-0.6); TOTAL CELLS COUNTED % (AUTO) 100 %
[2018-08-25 06:06] LABS: ABSOLUTE BASOPHILS # (AUTO) 0.1 10^3/uL (0.0-0.2); ABSOLUTE MONOCYTES (AUTO) 0.4 10^3/uL (0.1-1.4); ABSOLUTE NEUT (AUTO) 5.2 10^3/uL (1.7-8.2); BASOPHILS % (AUTO) 0.8 % (0-2); EOSINOPHILS % (AUTO) 3.7 % (0-6); HEMATOCRIT 50.3 % (37.9-51.0); HEMOGLOBIN 16.9 g/dL (13.5-17.0); LYMPHOCYTES % (AUTO) 25.3 % (13-45); MEAN CORPUSCULAR HEMOGLOBIN 25.5 pg (27.0-33.4); MEAN CORPUSCULAR HGB CONC 33.7 g/dL (32.0-36.0); MEAN CORPUSCULAR VOLUME 76 fl (80-97); MONOCYTES % (AUTO) 5.3 % (3-13); PLATELET COUNT 264 10^3/uL (150-450); RED BLOOD COUNT 6.65 10^6/uL (4.35-5.55); RED CELL DISTRIBUTION WIDTH 15.1 % (11.5-14.0); SEGMENTED NEUTROPHILS % (AUTO) 64.9 % (42-78)
--- NOTE | 2018-08-25 06:12 | RADIOLOGY REPORT (SQ) ---
EXAM DESCRIPTION: X-ray single view chest. CLINICAL HISTORY: 28 years Male, shortness of breath COMPARISON: Prior CT chest performed on 05/08/2018 TECHNIQUE: Single portable x-ray view of the chest performed on 08/25/2018 at 5:41 AM FINDINGS: The lungs are well expanded and are clear. There is no evidence of a pneumothorax. The cardiac silhouette is normal in size and configuration. The mediastinal contours are normal. No acute osseous abnormality is identified. No focal soft tissue abnormalities are seen. Lines and tubes: None. IMPRESSION: No evidence of acute intrathoracic disease.
[2018-08-25] MEDS ORDERED: IPRATROPIUM/ALBUTEROL 0.5-2.5 MG/3 ML AMPUL NEB ONE (06:30)
[2018-08-25 06:43] LABS: ANION GAP 10 (5-19); BLOOD UREA NITROGEN 10 mg/dL (7-20); CALCIUM 9.3 mg/dL (8.4-10.2); CARBON DIOXIDE 25 mmol/L (22-30); CHLORIDE 102 mmol/L (98-107); GLUCOSE 344 mg/dL (75-110); SODIUM 137.3 mmol/L (137-145)
[2018-08-25 06:44] LABS: POTASSIUM 4.5 mmol/L (3.6-5.0)
[2018-08-25] MEDS ORDERED: LORAZEPAM INJ 2 MG/1 ML VIAL IV ONE (06:50)
--- NOTE | 2018-08-25 07:24 | EKG REPORT ---
SEVERITY:- BORDERLINE ECG - SINUS TACHYCARDIA BORDERLINE T ABNORMALITIES, INFERIOR LEADS BORDERLINE PROLONGED QT INTERVAL : Confirmed by: Riky Harkins MD 25-Aug-2018 07:23:27
[2018-08-25] MEDS ORDERED: ALBUTEROL SULFATE HFA (90 MCG/PUFF) 8 GM MDI (1 MDI/ER DISP) IH ONE (07:54)
[2018-08-25 08:26] VITALS: BP 132/98
== END 2018-08-25 08:27 | disposition home or self-care (01) ==
LOC: ER 04:56
DX: J45.909 Unspecified asthma, uncomplicated (principal); F41.9 Anxiety disorder, unspecified; R06.02 Shortness of breath; R05 Cough; I10 Essential (primary) hypertension; E11.65 Type 2 diabetes mellitus with hyperglycemia; E11.40 Type 2 diabetes mellitus with diabetic neuropathy, unspecified; F12.10 Cannabis abuse, uncomplicated; R00.0 Tachycardia, unspecified
CPT/HCPCS: 93005; 94640 ×2; 99285; 96361; 96374; 36415; 85025; 80048; 85379; 71045; 93010; J2060; J7030; J3490 ×2; J7620

== ENCOUNTER 2018-08-25 17:43 | Emergency (ER) | payer OTHER ==
[2018-08-25] MEDS ORDERED: IPRATROPIUM BROMIDE 0.02% NEB 0.5 MG/2.5 ML AMPUL NEB ONE (18:47)
[2018-08-25] MEDS ORDERED: LEVALBUTEROL HCL NEB 1.25 MG/3 ML AMPUL NEB ONE (18:47)
--- NOTE | 2018-08-25 18:50 | ER Document Report ---
ED Medical Screen (RME) - General Chief Complaint: Asthma Exacerbation Stated Complaint: COUGH Time Seen by Provider: 08/25/18 18:39 Mode of Arrival: Ambulatory Information source: Patient TRAVEL OUTSIDE OF THE [place] IN LAST 30 DAYS: No - HPI Patient complains to provider of: asthma Notes: 08/25/18 18:48 Patient is here with complaints of asthma exacerbation. The patient has a history of asthma. He was seen here in the emergency department earlier this morning due to an asthma exacerbation. He was noted to be mildly tachycardic at that time. He has no DVT risk factors. Tells me he has had a venous Doppler in the past which was negative. This morning he had a negative d-dimer. He was given breathing treatments and states that he was feeling better. He went home and he thinks it may be something at his house is causing his asthma to flareup. Started coughing and feeling short of breath again. No chest pain. No fever. Exam No distress, nontoxic. Expiratory wheezing with diminished breath sounds throughout. Tachycardia. Plan I have ordered a Xopenex and Atrovent breathing treatment. I reviewed the paco ent's previous visit from this morning. Chest x-ray was negative. D-dimer was negative. He was noted to have an elevated blood sugar. He states he has not been taking his diabetic medication for the last week. I do believe the patient would likely benefit from some steroids, but with his lee-ob-teewzgk blood sugar, I am reluctant to give him steroids. Due to his tachycardia, I ordered Xopenex instead of albuterol. Patient will be seen and evaluated by a provider in the back to determine if further work-up is indicated at this time. An initial examination was made on the patient as part of the triage process, and it was determined a more comprehensive evaluation was necessary. Initial labs were ordered and patient was transferred to another provider in the ED who assumed care and finished evaluation and plan. - Related Data Allergies/Adverse Reactions: No Known Drug Allergies Allergy (Verified 08/25/18 17:51) Past Medical History - Social History Chew tobacco use (# tins/day): No Frequency of alcohol use: None Drug Abuse: None - Past Medical History Cardiac Medical History: Reports: Hx Hypercholesterolemia, Hx Hypertension Pulmonary Medical History: Reports: Hx Asthma Endocrine Medical History: Reports: Hx Diabetes Mellitus Type 2 - With neuropathy Renal/ Medical History: Denies: Hx Peritoneal Dialysis - Immunizations Immunizations up to date: Yes Physical Exam - Vital signs Vitals: Temp Pulse Resp BP Pulse Ox 98.2 F 122 H 14 140/93 H 94 08/25/18 18:25 08/25/18 18:25 08/25/18 18:25 08/25/18 18:25 08/25/18 18:25 Course - Vital Signs Vital signs: Temp Pulse Resp BP Pulse Ox 98.2 F 122 H 14 140/93 H 94 08/25/18 18:25 08/25/18 18:25 08/25/18 18:25 08/25/18 18:25 08/25/18 18:25
[2018-08-25] MEDS ORDERED: PREDNISONE 20 MG TABLET PO ONE (22:46)
--- NOTE | 2018-08-25 22:47 | ER Document Report ---
ED General - General Chief Complaint: Asthma Exacerbation Stated Complaint: COUGH Time Seen by Provider: 08/25/18 18:39 Mode of Arrival: Ambulatory Notes: Patient is here with complaints of asthma exacerbation. The patient has a history of asthma. He was seen here in the emergency department earlier this morning due to an asthma exacerbation. He was noted to be mildly tachycardic at that time. He has no DVT risk factors. Tells me he has had a venous Doppler in the past which was negative. This morning he had a negative d-dimer. He was given breathing treatments and states that he was feeling better. He went home and he thinks it may be something at his house is causing his asthma to flareup. Started coughing and feeling short of breath again. No chest pain. No fever. Symptoms have improved with treatment here in the emergency department prior to my assessment. Has had a history of similar symptoms many times in the past. Review of patient's medical record reveals that he has consistently been tachycardic on every visit to the emergency department since the beginning of May, has had a CTA of the chest which was normal for evidence of pulmonary embolus and was obtained under similar circumstances. He has never followed up with cardiology regarding his persistent tachycardia. TRAVEL OUTSIDE OF THE [place] IN LAST 30 DAYS: No - Related Data Allergies/Adverse Reactions: No Known Drug Allergies Allergy (Verified 08/25/18 17:51) Past Medical History - General Information source: Patient - Social History Smoking Status: Unknown if Ever Smoked Chew tobacco use (# tins/day): No Frequency of alcohol use: None Drug Abuse: None Family History: Reviewed & Not Pertinent Patient has suicidal ideation: No Patient has homicidal ideation: No - Past Medical History Cardiac Medical History: Reports: Hx Hypercholesterolemia, Hx Hypertension Pulmonary Medical History: Reports: Hx Asthma Endocrine Medical History: Reports: Hx Diabetes Mellitus Type 2 - With neuropathy Renal/ Medical History: Denies: Hx Peritoneal Dialysis - Immunizations Immunizations up to date: Yes Physical Exam - Vital signs Vitals: Temp Pulse Resp BP Pulse Ox 98.2 F 122 H 14 140/93 H 94 08/25/18 18:25 08/25/18 18:25 08/25/18 18:25 08/25/18 18:25 08/25/18 18:25 Course - Vital Signs Vital signs: Temp Pulse Resp BP Pulse Ox 98.2 F 122 H 14 140/93 H 94 08/25/18 18:25 08/25/18 18:25 08/25/18 18:25 08/25/18 18:25 08/25/18 18:25 Discharge - Discharge Clinical Impression: Shortness of breath, Wheezing, Tachycardia Condition: Good Disposition: HOME, SELF-CARE Additional Instructions: Please follow-up with cardiology regarding your persistent tachycardia. Take the steroids that was previously prescribed on your previous visit. Return if you have worsening of your shortness of breath, increased cough, pass out, develop chest pain or have any other symptoms that are worrisome to you. Referrals: SHARIFA DENNIS MD [ACTIVE STAFF] - Follow up as needed (tomorrow )
[2018-08-25 22:59] VITALS: BP 155/105
== END 2018-08-25 22:50 | disposition home or self-care (01) ==
LOC: ER 17:43
DX: J45.909 Unspecified asthma, uncomplicated (principal); R00.0 Tachycardia, unspecified; R05 Cough; R06.02 Shortness of breath; I10 Essential (primary) hypertension; E11.40 Type 2 diabetes mellitus with diabetic neuropathy, unspecified
CPT/HCPCS: 94640; 99284; J7512; J3490 ×2

== ENCOUNTER 2018-11-05 18:32 | Emergency (ER) | payer OTHER ==
[2018-11-05 18:40] VITALS: BP 146/100
--- NOTE | 2018-11-05 19:20 | ER Document Report ---
HPI - HPI Patient complains to provider of: Sore throat, dental pain Time Seen by Provider: 11/05/18 18:55 Onset: Other - 5 days Onset/Duration: Persistent Quality of pain: Achy Pain Level: 5 Context: Patient presents complaining of sore throat and dental pain for the past 5 days. Patient states that the feeling fell out of his tooth recently. Patient denies any fever or facial swelling. Associated Symptoms: Other - Dental pain. denies: Earache, Fever Exacerbated by: Denies Relieved by: Denies Similar symptoms previously: Yes Recently seen / treated by doctor: No - ROS ROS below otherwise negative: Yes Systems Reviewed and Negative: Yes All other systems reviewed and negative - CONSTITUTIONAL Constitutional: DENIES: Fever, Chills - EENT EENT: REPORTS: Sore Throat Notes: Dental pain - NEURO Neurology: DENIES: Weakness - CARDIOVASCULAR Cardiovascular: DENIES: Chest pain - RESPIRATORY Respiratory: DENIES: Trouble Breathing, Coughing - GASTROINTESTINAL Gastrointestinal: DENIES: Nausea - DERM Skin Color: Normal Skin Problems: None Past Medical History - General Information source: Patient - Social History Smoking Status: Never Smoker Frequency of alcohol use: None Drug Abuse: None Family History: DM Patient has suicidal ideation: No Patient has homicidal ideation: No - Past Medical History Cardiac Medical History: Reports: Hx Congestive Heart Failure, Hx Hypercholes terolemia, Hx Hypertension Pulmonary Medical History: Reports: Hx Asthma Endocrine Medical History: Reports: Hx Diabetes Mellitus Type 2 - With neurop athy Renal/ Medical History: Denies: Hx Peritoneal Dialysis Psychiatric Medical History: Reports: Hx Bipolar Disorder Past Surgical History: Reports: Hx Tonsillectomy - Immunizations Immunizations up to date: Yes Vertical Provider Document - CONSTITUTIONAL Agree With Documented VS: Yes Exam Limitations: No Limitations General Appearance: WD/WN, No Apparent Distress - INFECTION CONTROL TRAVEL OUTSIDE OF THE [place] IN LAST 30 DAYS: No - HEENT HEENT: Atraumatic, Normocephalic. negative: Tympanic Membrane Red, Tympanic Membrane Bulging Mouth Diagram: 1 - dental decay, dental fracture, no trismus, no abscess, no sublingual or submental swelling - NECK Neck: Normal Inspection, Supple. negative: Lymphadenopathy-Left, Lymphadenopathy-Right - RESPIRATORY Respiratory: Breath Sounds Normal, No Respiratory Distress - CARDIOVASCULAR Cardiovascular: Regular Rhythm, No Murmur, Tachycardia - MUSCULOSKELETAL/EXTREMETIES Musculoskeletal/Extremeties: MAEW - NEURO Level of Consciousness: Awake, Alert, Appropriate Motor/Sensory: No Motor Deficit - DERM Integumentary: Warm, Dry, No Rash Course - Vital Signs Vital signs: Temp Pulse Resp BP Pulse Ox 98.7 F 111 H 16 146/100 H 98 11/05/18 18:38 11/05/18 18:38 11/05/18 18:38 11/05/18 18:38 11/05/18 18:38 Discharge - Discharge Clinical Impression: Toothache Condition: Stable Disposition: HOME, SELF-CARE Instructions: Oral Narcotic Medication ([facility]), Penicillin V K ([facility]), Toothache ([facility]) Additional Instructions: Return immediately for any new or worsening symptoms Followup with your primary care provider, call tomorrow to make a followup appointment Follow-up with a dental care provider for further evaluation Prescriptions: Acetaminophen with Codeine [Tylenol #3 Tablet] 1 each PO Q6HP PRN #10 tablet PRN Reason: Penicillin V Potassium [Penicillin Vk 500 mg Tablet] 500 mg PO BID #20 tablet Referrals: [facility] [Provider Group] - Follow up as needed
== END 2018-11-05 19:46 | disposition home or self-care (01) ==
LOC: ER 18:32
DX: K08.89 Other specified disorders of teeth and supporting structures (principal); J02.9 Acute pharyngitis, unspecified; I50.9 Heart failure, unspecified; I10 Essential (primary) hypertension; J45.909 Unspecified asthma, uncomplicated; E11.40 Type 2 diabetes mellitus with diabetic neuropathy, unspecified
CPT/HCPCS: 99282

== ENCOUNTER 2018-11-07 17:38 | Emergency (ER) | payer OTHER ==
[2018-11-07 17:56] VITALS: BP 139/78
--- NOTE | 2018-11-07 19:44 | ER Document Report ---
HPI - HPI Patient complains to provider of: dental pain Time Seen by Provider: 11/07/18 19:20 Onset: Last week Pain Level: 4 Context: This is a 28-year-old male with listed past medical history presenting with toothache. Patient states this has been ongoing for about several days. Patient was seen and evaluated here 2 days ago and discharged on penicillin given Tylenol with codeine but he states his symptoms have worsened so he came back in for reevaluation. States that he has developed some swelling and increased pain on the right side of his throat however he is able to tolerate his secretions, p.o., and swallow normally. He is a diabetic however does not check his sugars often. He is on insulin. He denies his sugars running high recently. Patient describes the pain in the mouth as a 6 out of 10, sharp, aching, is located in the right lower posterior part of the mouth. Patient denies any difficulty swallowing. Patient denies any difficulty handling secretions. Patient states normal appetite and fluid intake. Patient denies any fever or chills. Patient denies any radiation of pain into the neck. Patient states that chewing, and hot and cold make the pain worse. Palpation makes pain worse and rest makes it better. Patient denies any difficulty breathing. Patient denies all complaints at this time. Patient is here for pain control. Patient states he has not followed up with a dentist secondary to no insurance. He does plan to call [facility] on Saturday in 2 days when they open to set up an appointment. He also has zoll life vest for chf. He was discharged with penicillin VK twice daily and Tylenol with codeine however he still has 3 Tylenol with codeine pills left with him. He states it is not working. - REPRODUCTIVE Reproductive: DENIES: : Past Medical History - General Information source: Patient - Social History Smoking Status: Never Smoker Family History: DM Patient has suicidal ideation: No Patient has homicidal ideation: No - Past Medical History Cardiac Medical History: Reports: Hx Congestive Heart Failure - with zoll life vest, Hx Hypercholesterolemia, Hx Hypertension Pulmonary Medical History: Reports: Hx Asthma Endocrine Medical History: Reports: Hx Diabetes Mellitus Type 2 - With neuropathy Renal/ Medical History: Denies: Hx Peritoneal Dialysis Psychiatric Medical History: Reports: Hx Bipolar Disorder Past Surgical History: Reports: Hx Tonsillectomy - Immunizations Immunizations up to date: Yes Vertical Provider Document - CONSTITUTIONAL Notes: >>>> PHYSICAL_EXAM: GENERAL_APPEARANCE: well_nourished, alert, cooperative, no_acute_distress, no_obvious_discomfort. Pleasant obese young black male, smiling, easily sitting up, speaking in full sentences, no sign of pain or respiratory distress VITALS:reviewed, see vital signs table. EYES: PERRL, EOMI, conjunctiva_clear. NOSE: no_nasal_discharge. MOUTH: (-)decreased moisture. there are multiple dental caries noted. Tooth #32 and 31 are broken, and eroded to the gumline, and are extremely carious. There is no localization for inflammation. There is no buccal swelling and tende rness to palpation. Uvula is midline. There is no trismus. There is no TMJ clicking produced. no tenderness over the sternocleidomastoid muscles. There is no tenderness over the thyroid cartilage. There is no submandibular hardness. There is no drooling, tripoding, however patient does have a slightly hoarse voice but it is not muffled or hot potato in nature. THROAT: no_tonsilar_inflammation/exudate/hypertrophy, no_airway_obstruction. NECK: supple, no_neck_tenderness, (-)thyromegaly. Full range of motion. Full strength. No meningeal signs. LUNGS: no_wheezing, CTAB (-)accessory muscle use, good air exchange bilateral. HEART: normal_rate, normal_rhythm, EXTREMITIES: strength 5/5 in all extremities, good pulses in all extremities, no swelling\tenderness in the extremities, no edema. full rom. normal gait NEURO: motor and sensation intact to light touch, cranial nerves 2-12 intact SKIN: warm, dry, good_color, no_rash. MENTAL_STATUS: speech_clear, oriented_X_3 , normal_affect, responds_appropriately to questions. - INFECTION CONTROL TRAVEL OUTSIDE OF THE [place] IN LAST 30 DAYS: No Course - Re-evaluation Re-evalutation: Patient here for dental pain. Do have concern is developing a peritonsillar abscess. There is no sign of Trevin's at this time. He is tolerating his secretions, p.o., and airway normally. He does have a slightly hoarse voice however is not hot potato or muffled in nature. Secondary to his multiple comorbidities I will switch his antibiotics from penicillin to clindamycin and give him a lidocaine swish and swallow. He still has a couple pills of the Tylenol with codeine he can continue to take. I did advise him since he got narcotics here 2 days ago would not be prescribing further narcotics for him at this time. I did encourage him to call the dentist without fail in 2 days and they open. Strict return precautions given. Vital signs stable. Patient understands and agrees to plan. Nontoxic. 11/07/18 19:40 On reexam, pt improved and would like to go home. vss. well appearing. tolerating po. Appears clinically hydrated. According to the [place] drug database, he got 10 Tylenol with codeine 2 days ago here. He also got Ambien, Cheratussin, and Lyrica over the last 2 years but nothing else recently. 11/07/18 20:58 - Vital Signs Vital signs: Temp Pulse Resp BP Pulse Ox 97.4 F 101 H 16 139/78 H 97 11/07/18 17:54 11/07/18 17:54 11/07/18 17:54 11/07/18 17:54 11/07/18 17:54 Discharge - Discharge Clinical Impression: Pain, dental Condition: Stable Disposition: HOME, SELF-CARE Instructions: Toothache ([facility]) Additional Instructions: Follow-up with dentist 1 to 2 days. Return for any worsening symptoms. stop taking the clindamycin. continue taking your meds as prescribed. take the meds you were given as prescribed and follow up with the dentist without fail. keep a close check on your sugars Prescriptions: Clindamycin HCl [Cleocin 150 mg Capsule] 450 mg PO TID 7 Days #63 capsule Lidocaine HCl [Xylocaine 2% Viscous Soln 20 ml Udcup] 15 ml PO QID PRN #200 ml PRN Reason: For Breakthrough Pain
== END 2018-11-07 21:07 | disposition home or self-care (01) ==
LOC: ER 17:38
DX: K02.9 Dental caries, unspecified (principal); K08.89 Other specified disorders of teeth and supporting structures; R49.0 Dysphonia; E11.40 Type 2 diabetes mellitus with diabetic neuropathy, unspecified; Z79.4 Long term (current) use of insulin; I11.0 Hypertensive heart disease with heart failure; I50.9 Heart failure, unspecified; Z95.811 Presence of heart assist device; J45.909 Unspecified asthma, uncomplicated
CPT/HCPCS: 99282

== ENCOUNTER 2018-11-25 05:31 | Emergency (ER) | payer OTHER ==
--- NOTE | 2018-11-25 06:41 | ER Document Report ---
ED General - General Chief Complaint: Other Stated Complaint: CHEST DISCOMFORT Time Seen by Provider: 11/25/18 06:07 Notes: 28-year-old male presents to the ER with an alarming LifeVest. The patient had bent over pick something up in the LifeVest alarmed. He is come in for evaluation states he did not have any symptoms or anything initially however after it alarmed he got very nervous. He stated he felt funny afterwards but once he had a calm down he was fine he is here for further evaluation and treatment. Currently he denies no chest pain or shortness of breath no abdominal pain no nausea vomiting diarrhea TRAVEL OUTSIDE OF THE [place] IN LAST 30 DAYS: No - Related Data Allergies/Adverse Reactions: No Known Drug Allergies Allergy (Verified 11/07/18 17:40) Past Medical History - Social History Smoking Status: Unknown if Ever Smoked Family History: DM - Past Medical History Cardiac Medical History: Reports: Hx Congestive Heart Failure - with zoll life vest, Hx Hypercholesterolemia, Hx Hypertension Pulmonary Medical History: Reports: Hx Asthma Endocrine Medical History: Reports: Hx Diabetes Mellitus Type 2 - With neuropathy Renal/ Medical History: Denies: Hx Peritoneal Dialysis Psychiatric Medical History: Reports: Hx Bipolar Disorder Past Surgical History: Reports: Hx Tonsillectomy - Immunizations Immunizations up to date: Yes Review of Systems - Review of Systems Constitutional: denies: Chills, Fever EENT: denies: Nose congestion, Sinus pressure Cardiovascular: Chest pain Respiratory: Short of breath Gastrointestinal: denies: Abdominal pain Genitourinary: denies: Dysuria -: Yes All other systems reviewed and negative Physical Exam - Vital signs Vitals: Resp Pulse Ox 27 H 97 11/25/18 05:53 11/25/18 05:53 - Notes Notes: GENERAL_APPEARANCE: well_nourished, alert, cooperative, no_acute_distress, no_obvious_discomfort. VITALS: reviewed, see vital signs table. HEAD: no_swelling\tenderness on the head. EYES: PERRL, EOMI, conjunctiva_clear. NOSE: no_nasal_discharge. MOUTH: (-)decreased moisture. THROAT: no_tonsilar_inflammation, no_airway_obstruction. no_lymphadenopathy NECK: supple, no_neck_tenderness, (-)thyromegaly. BACK: no_back_tenderness. CHEST_WALL: no_chest_tenderness. LUNGS: no_wheezing, no_rales, no_rhonchi, (-)accessory muscle use, good air exchange bilateral. HEART: normal_rate, normal_rhythm, normal_S1, normal_S2, (-)S3, (-)S4, no_murmur, no_rub. ABDOMEN: normal_BS, soft, no_abd_tenderness, (-)guarding, (-)rebound, no_organomegaly, no_abd_masses. EXTREMITIES: good pulses in all_extremities, no_swelling\tenderness in the extremities, no_edema. SKIN: warm, dry, good_color, no_rash. MENTAL_STATUS: speech_clear, oriented_X_3, normal_affect, responds_appropriately to questions. Course - Re-evaluation Re-evalutation: 11/25/18 06:39 28-year-old male who comes in for an alarming LifeVest. Currently the patient is symptom-free will check EKG and lab work. We will call the [facility] to interrogate I believe this is likely poor skin contact when he bent over. Patient otherwise is feeling well. He was little anxious at first but states he feels much better now. We will continue to monitor him closely. 11/25/18 09:35 The patient has had several poor connection errors here but otherwise nothing of significance. We spoke it was old and they will check the telemetry at home but we believe that this is likely just a poor pad connection. Patient has an appointment in 2 days with his buttonholer and they will follow-up with him then. The patient is comfortable going home he said no other symptoms or issues. His work-up here is reassuring. Any additional problems he is to re turn directly to the ER he verbalized understanding. - Vital Signs Vital signs: Temp Pulse Resp BP Pulse Ox 22 H 120/71 96 11/25/18 05:54 11/25/18 05:54 11/25/18 05:54 - Laboratory Result Diagrams: 11/25/18 06:51 11/25/18 06:51 Laboratory results interpreted by me: 11/25/18 11/25/18 06:51 06:51 RBC 6.12 H MCV 76 L MCH 25.7 L RDW 15.9 H BUN 6 L Glucose 270 H - EKG Interpretation by Me EKG shows normal: Sinus rhythm Rate: Normal Additional EKG results interpreted by me: 11/25/18 06:41 Old Q waves and left axis deviation Discharge - Discharge Clinical Impression: ICD (implantable cardioverter-defibrillator) malfunction Qualifiers: Encounter type: initial encounter Qualified Code(s): T82.118A - Breakdown (m echanical) of other cardiac electronic device, initial encounter Condition: Good Disposition: HOME, SELF-CARE Instructions: Chest Pain of Unclear Cause ([facility]) Additional Instructions: If any additional problems or alarm return immediately to the ER upon arriving home sink years old LifeVest and keep your appointment with your buttonholer.
[2018-11-25 07:00] LABS: ABSOLUTE BASOPHILS # (AUTO) 0.1 10^3/uL (0.0-0.2); ABSOLUTE EOSINOPHILS # (AUTO) 0.2 10^3/uL (0.0-0.6); ABSOLUTE LYMPHOCYTES (AUTO) 2.1 10^3/uL (0.5-4.7); ABSOLUTE MONOCYTES (AUTO) 0.7 10^3/uL (0.1-1.4); ABSOLUTE NEUT (AUTO) 6.6 10^3/uL (1.7-8.2); BASOPHILS % (AUTO) 0.9 % (0-2); EOSINOPHILS % (AUTO) 1.8 % (0-6); HEMATOCRIT 46.7 % (37.9-51.0); HEMOGLOBIN 15.7 g/dL (13.5-17.0); LYMPHOCYTES % (AUTO) 21.8 % (13-45); MEAN CORPUSCULAR HEMOGLOBIN 25.7 pg (27.0-33.4); MEAN CORPUSCULAR HGB CONC 33.6 g/dL (32.0-36.0); MEAN CORPUSCULAR VOLUME 76 fl (80-97); MONOCYTES % (AUTO) 7.1 % (3-13); PLATELET COUNT 326 10^3/uL (150-450); RED BLOOD COUNT 6.12 10^6/uL (4.35-5.55); RED CELL DISTRIBUTION WIDTH 15.9 % (11.5-14.0); SEGMENTED NEUTROPHILS % (AUTO) 68.4 % (42-78); TOTAL CELLS COUNTED % (AUTO) 100 %; WHITE BLOOD COUNT 9.7 10^3/uL (4.0-10.5)
[2018-11-25 07:17] LABS: ANION GAP 12 (5-19); BLOOD UREA NITROGEN 6 mg/dL (7-20); CALCIUM 9.1 mg/dL (8.4-10.2); CARBON DIOXIDE 25 mmol/L (22-30); CHLORIDE 104 mmol/L (98-107); GLUCOSE 270 mg/dL (75-110)
[2018-11-25 07:18] LABS: POTASSIUM 3.7 mmol/L (3.6-5.0)
[2018-11-25] MEDS ORDERED: LOPERAMIDE HCL 2 MG CAPSULE PO ONE (09:20)
[2018-11-25 09:48] VITALS: BP 116/76
--- NOTE | 2018-11-25 13:43 | EKG REPORT ---
SEVERITY:- ABNORMAL ECG - SINUS TACHYCARDIA BORDERLINE LEFT AXIS DEVIATION ABNORMAL Q SUGGESTS INFERIOR INFARCT : Confirmed by: Blanca Ponce 25-Nov-2018 13:42:37
== END 2018-11-25 09:54 | disposition home or self-care (01) ==
LOC: ER 05:31
DX: T82.118A Breakdown (mechanical) of other cardiac electronic device, initial encounter (principal); F41.9 Anxiety disorder, unspecified; R07.9 Chest pain, unspecified; I50.9 Heart failure, unspecified; I11.0 Hypertensive heart disease with heart failure; E11.9 Type 2 diabetes mellitus without complications; J45.909 Unspecified asthma, uncomplicated
CPT/HCPCS: 36415; 80048; 84484; 85025; 93005; 93010; 99284

== ENCOUNTER 2020-01-23 03:10 | Emergency (ER) | payer MEDICAID ==
[2020-01-23] MEDS ORDERED: TETRACAINE HCL 0.5% OPH SOLN 4 ML ONE (05:30)
--- NOTE | 2020-01-23 05:52 | ER Document Report ---
ED Eye Complaint - General Chief Complaint: Redness of Eye Stated Complaint: RIGHT EYE PAIN Time Seen by Provider: 01/23/20 05:17 Primary Care Provider: DAY AMEZCUA MD [Primary Care Provider] - Follow up as needed Mode of Arrival: Ambulatory TRAVEL OUTSIDE OF THE [place] IN LAST 30 DAYS: No - HPI Eye location: Right Injury: No Occurred at: Home Quality of pain: Burning Severity: Moderate Pain Level: 3 Exposure: Other - None Contact lenses worn: Yes - pt states he hasnt used lately Associated symptoms: Photophobia Notes: This is a 29-year-old male who presents complaining of right eye pain and photophobia x3 hours. Patient denies trauma, history of glaucoma, recent contact use. Patient states that light exacerbates the pain in his right eye and he took an Aleve prior to arrival which seemed to help the pain slightly. Patient denies headache, difficulty walking difficulty with speech, nausea or vomiting, neck stiffness or pain, chest pain, shortness of breath, loss of sense of taste or sense of smell, exposure to known COVID positive persons or persons under investigation for COVID. Patient states he does wear contacts but he has not worn those in months. - Related Data Allergies/Adverse Reactions: No Known Drug Allergies Allergy (Verified 11/07/18 17:40) Past Medical History - General Information source: Patient - Social History Smoking Status: Never Smoker Family History: Reviewed & Not Pertinent, DM - Past Medical History Cardiac Medical History: Reports: Hx Congestive Heart Failure - with zoll life vest, Hx Hypercholesterolemia, Hx Hypertension Pulmonary Medical History: Reports: Hx Asthma Endocrine Medical History: Reports: Hx Diabetes Mellitus Type 2 - With neuropathy Renal/ Medical History: Denies: Hx Peritoneal Dialysis Psychiatric Medical History: Reports: Hx Bipolar Disorder Past Surgical History: Reports: Hx Tonsillectomy - Immunizations Immunizations up to date: Yes Review of Systems - Review of Systems Constitutional: No symptoms reported EENT: Eye pain Cardiovascular: No symptoms reported Respiratory: No symptoms reported Gastrointestinal: No symptoms reported Genitourinary: No symptoms reported Male Genitourinary: No symptoms reported Musculoskeletal: No symptoms reported Skin: No symptoms reported Hematologic/Lymphatic: No symptoms reported Neurological/Psychological: No symptoms reported -: Yes All other systems reviewed and negative Physical Exam - Vital signs Vitals: Temp Pulse Resp BP Pulse Ox 98.0 F 99 16 168/106 H 100 01/23/20 03:15 01/23/20 03:15 01/23/20 03:15 01/23/20 03:15 01/23/20 03:15 - Notes Notes: CONSTITUTIONAL [Vital signs reviewed, Patient appears comfortable, Alert and oriented X 3, Normal stature.] HEAD [Atraumatic, Normocephalic.] EYES Visual acuity reviewed. Eye exam: Tetracaine was instilled into patient's right eye with relief of pain and photophobia. Patient's right eye was examined with slit lamp. Fluorescein was used. There was no cell or flare noted. There is no pupil irregularity. Prince's test negative. Floor seen exam reveals diffuse floor seen uptake in a stippling pattern consistent with conjunctivitis. Patient has some dried you were seen today for gout. Please take the second dose of colchicine that you were sent home with 1 hour after receiving yourfirst dose. Take ibuprofen 600 mg with Tylenol 1000 mg every 6 hours as needed for pain. Follow-up with your primary care doctor in the next several days. Return if you have fever greater than 100.4F, worsening pain, become unable to move the knee, or have any other symptoms that are worrisome to you. Present that is adjacent to his right lateral canthus. Extraocular movements are present in both eyes consensual responses intact. Positive conjunctival injection noted in the right eye.] ] NEURO [No focal motor deficits, No focal sensory deficits, Speech normal.] SKIN [Skin is warm, Skin is dry, Skin is normal color.] ] PSYCHIATRIC [Normal affect. ] - HEENT Visual acuity- Right eye: 20/20 Visual acuity- Left eye: 20/40 Visual acuity- Both eyes: 20/20 Corrective lenses worn: Yes Course - Re-evaluation Re-evalutation: 01/23/20 06:02 Diagnosis, results of slit exam, plan of care discussed with patient. All questions were answered prior to discharge. Emergency signs and symptoms, reasons to return to the emergency department discussed with patient. - Vital Signs Vital signs: Temp Pulse Resp BP Pulse Ox 98.0 F 99 16 168/106 H 100 01/23/20 03:15 01/23/20 03:15 01/23/20 03:15 01/23/20 03:15 01/23/20 03:15 Discharge - Discharge Clinical Impression: Conjunctivitis Qualifiers: Conjunctivitis type: unspecified Laterality: right Qualified Code(s): H10.9 - Unspecified conjunctivitis Condition: Stable Disposition: HOME, SELF-CARE Instructions: Conjunctivitis ([facility]) Additional Instructions: Return to the Emergency Department without delay if any worse. Follow-up with your eye doctor on 01/24/2022 follow-up and have your eye rechecked. HOME CARE INSTRUCTIONS & INFORMATION: Thank you for choosing us for your medical needs. We hope you're satisfied with the care you received. After you leave, you must properly care for your problem and, at the same time, observe its progress. Any condition can change. Some illnesses can change rapidly over hours or days. If your condition worsens, return to the Emergency Department or see your physician promptly. ABOUT YOUR X-RAYS AND EKG'S: If you had an EKG or X-rays taken, they have been read by the Emergency Physician. The X-rays and EKG's will also be read by a Radiologist or Aquatic Instructor within 24 hours. If discrepancies are noted, you will be notified by telephone. Please be certain the ED has a correct telephone number & address where you can be reached. Also, realize that some fractures or abnormalities do not show up on initial X-rays. If your symptoms continue, see your physician. ABOUT YOUR LABORATORY TEST: If you had laboratory tests, the results have been reviewed by the Emergency Physician. Some test results (for example cultures) may not be available for several days. You will be contacted if any test result shows you need additional treatment. Please be certain the ED has a correct [facility] number and address where you can be reached. ABOUT YOUR MEDICATIONS: You will receive instructions on how to take your medicine on the prescription label you receive. Additional information may be provided by the Pharmacy. If you have questions afterwards, call the ED for clarification or further instructions. Some prescribed medications may cause drowsiness. Do not perform tasks such as driving a car or operating machinery without consulting your Pharmacist. If you feel you need a refill of pain medication, your condition will need re-evaluation. Please do not call for a refill of any medication. ABOUT YOUR SIGNATURE: Signature of this document acknowledges to followin. Understanding that you received emergency treatment and that you may be released before al medical problems are known or treated. Please be certain the ED has a correct phone number & address where you can be reached. 2. Acknowledgement that you will arrange for follow-up care as recommended. 3. Authorization for the Emergency Physician to provide information to your follow-up Physician in order to maximize your care. AT ANY TIME, IF YOUR SYMPTOMS CHANGE SIGNIFICANTLY OR WORSEN OR YOU DEVELOP NEW SYMPTOMS, RETURN TO THE EMERGENCY DEPARTMENT IMMEDIATELY FOR RE-EVALUATION. OUR GOAL IS TO PROVIDE EXCELLENT MEDICAL CARE! WE HOPE THAT WE HAVE MET YOUR EXPECTATIONS DURING YOUR EMERGENCY DEPARTMENT VISIT AND THAT YOU FEEL YOU HAVE RECEIVED EXCELLENT CARE! Prescriptions: Flurbiprofen Sodium 1 drp OD Q1HP PRN #1 bottle PRN Reason: eye pain Moxifloxacin HCl [Vigamox 0.5% Oph Soln 3 ml] 1 drop OD TID 7 Days #1 bottle Referrals: DAY AMEZCUA MD [Primary Care Provider] - Follow up as needed
[2020-01-23] MEDS ORDERED: TETRACAINE HCL 0.5% OPH SOLN 4 ML OD ONE ×2 (05:54)
[2020-01-23 06:32] VITALS: BP 132/95
== END 2020-01-23 06:31 | disposition home or self-care (01) ==
LOC: ER 03:10
DX: H10.9 Unspecified conjunctivitis (principal); I10 Essential (primary) hypertension; J45.909 Unspecified asthma, uncomplicated; E11.40 Type 2 diabetes mellitus with diabetic neuropathy, unspecified
CPT/HCPCS: 99283; J3490

== ENCOUNTER 2020-02-21 15:19 | Emergency (ER) | payer MEDICAID ==
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
[2020-02-21 16:09] LABS: ABSOLUTE BASOPHILS # (AUTO) 0.1 10^3/uL (0.0-0.2); ABSOLUTE EOSINOPHILS # (AUTO) 0.2 10^3/uL (0.0-0.6); ABSOLUTE LYMPHOCYTES (AUTO) 1.3 10^3/uL (0.5-4.7); ABSOLUTE MONOCYTES (AUTO) 0.4 10^3/uL (0.1-1.4); ABSOLUTE NEUT (AUTO) 5.7 10^3/uL (1.7-8.2); EOSINOPHILS % (AUTO) 2.2 % (0-6); HEMATOCRIT 45.8 % (37.9-51.0); HEMOGLOBIN 15.8 g/dL (13.5-17.0); MEAN CORPUSCULAR HEMOGLOBIN 27.2 pg (27.0-33.4); MEAN CORPUSCULAR HGB CONC 34.5 g/dL (32.0-36.0); MEAN CORPUSCULAR VOLUME 79 fl (80-97); MONOCYTES % (AUTO) 5.2 % (3-13); PLATELET COUNT 239 10^3/uL (150-450); RED BLOOD COUNT 5.81 10^6/uL (4.35-5.55); RED CELL DISTRIBUTION WIDTH 13.6 % (11.5-14.0); SEGMENTED NEUTROPHILS % (AUTO) 74.6 % (42-78); TOTAL CELLS COUNTED % (AUTO) 100 %; WHITE BLOOD COUNT 7.6 10^3/uL (4.0-10.5)
[2020-02-21 16:31] LABS: ALBUMIN 3.7 g/dL (3.5-5.0); ALKALINE PHOSPHATASE 154 U/L (38-126); ANION GAP 11 (5-19); ASPARTATE AMINO TRANSFERASE 23 U/L (17-59); BILIRUBIN,DIRECT 0.3 mg/dL (0.0-0.4); BILIRUBIN,TOTAL 0.5 mg/dL (0.2-1.3); BLOOD UREA NITROGEN 8 mg/dL (7-20); CALCIUM 9.1 mg/dL (8.4-10.2); CARBON DIOXIDE 25 mmol/L (22-30); CHLORIDE 95 mmol/L (98-107); TOTAL PROTEIN 6.3 g/dL (6.3-8.2)
[2020-02-21 16:40] LABS: GLUCOSE 592 mg/dL (75-110)
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
[2020-02-21 17:09] VITALS: BP 116/84
== END 2020-02-21 17:09 | disposition home or self-care (01) ==
LOC: ER 15:19
DX: T20.22XA Burn of second degree of lip(s), initial encounter (principal); X08.8XXA Exposure to other specified smoke, fire and flames, initial encounter; Y93.89 Activity, other specified; Y99.0 Civilian activity done for income or pay; E11.40 Type 2 diabetes mellitus with diabetic neuropathy, unspecified; I10 Essential (primary) hypertension; J45.909 Unspecified asthma, uncomplicated; Z79.84 Long term (current) use of oral hypoglycemic drugs; Z79.02 Long term (current) use of antithrombotics/antiplatelets
CPT/HCPCS: 36415; 80053; 82375; 85025; 99283

== ENCOUNTER 2020-03-01 23:32 | Emergency (ER) | payer MEDICAID ==
[2020-03-01] MEDS ORDERED: SULFAMETHOXAZOLE/TRIMETHOPRIM 800-160 MG TABLET PO ONE (23:55)
[2020-03-01] MEDS ORDERED: MELOXICAM 7.5 MG TABLET PO ONE (23:55)
--- NOTE | 2020-03-02 00:05 | ER Document Report ---
ED General - General Chief Complaint: Finger Injury Stated Complaint: POSSIBLE FINGER INJURY Primary Care Provider: DAY AMEZCUA MD [Primary Care Provider] - Follow up as needed Notes: Patient is a 29-year-old -[place] male with a history of diabetes and obesity who presents to the emergency department the chief complaint of right shoulder pain and left ring finger wound. He states he is living in a hotel and about a week ago he slipped and fell landing bluntly on the right shoulder. He states he is had some soreness in it since but that it is gradually worsened. He denies any further injury. Denies any radiation of pain. Denies any numbness tingling or weakness. Denies any burning pain. He also adds that he called his doctor about a small swollen area on the PIP dorsally of the left ring finger. His doctor discussed with him over the phone and called him in doxycycline. He states has been on doxycycline for 5 days with no improvement. He states he is concerned and does not want to worsen given his history of diabetes. He denies any drainage. Denies any worsening. Denies any fever or injury to the finger. No redness or worsening swelling. States he can feel fluid beneath the area that is there. TRAVEL OUTSIDE OF THE [place] IN LAST 30 DAYS: No - Related Data Allergies/Adverse Reactions: No Known Drug Allergies Allergy (Verified 02/21/20 15:38) Past Medical History - Social History Smoking Status: Unknown if Ever Smoked Family History: Reviewed & Not Pertinent, DM - Past Medical History Cardiac Medical History: Reports: Hx Congestive Heart Failure - with zoll life vest, Hx Hypercholesterolemia, Hx Hypertension Pulmonary Medical History: Reports: Hx Asthma Endocrine Medical History: Reports: Hx Diabetes Mellitus Type 2 - With neurop athy Renal/ Medical History: Denies: Hx Peritoneal Dialysis Psychiatric Medical History: Reports: Hx Bipolar Disorder Past Surgical History: Reports: Hx Tonsillectomy - Immunizations Immunizations up to date: Yes Review of Systems - Review of Systems Constitutional: denies: Fever EENT: denies: Nose congestion Cardiovascular: denies: Syncope Respiratory: denies: Short of breath Gastrointestinal: denies: Constipation Genitourinary: denies: Flank pain Male Genitourinary: denies: Testicular pain Musculoskeletal: Joint swelling Skin: denies: Change in hair/nails Hematologic/Lymphatic: denies: Blood clots Neurological/Psychological: denies: Homicidal ideation Physical Exam - Vital signs Vitals: Temp Pulse Resp BP Pulse Ox 98.5 F 100 20 158/103 H 98 03/01/20 23:39 03/01/20 23:39 03/01/20 23:39 03/01/20 23:39 03/01/20 23:39 - General General appearance: Appears well, Alert In distress: None - Respiratory Respiratory status: No respiratory distress Chest status: Nontender Breath sounds: Normal Chest palpation: Normal - Cardiovascular Rhythm: Regular Heart sounds: Normal auscultation - Extremities Shoulder: Other - Limited range of motion of the right shoulder secondary to pain. Patient winces with anything past 90 degrees in forward flexion, abduction and internal rotation. Neurovascular intact distally with 2+ radial. Corporate Banking Officer strength 4 out of 5 on the right as compared with the left. Tender to palpation over the AC joint and proximal deltoid/acromion. No deformity step- off or crepitus. Hand: Other - Very small area of swelling proximal interphalangeal joint left fourth digit dorsally with centralized crusting. There is some minimal fluctuance appreciated. No redness or increased warmth. No drainage. No proximal streaking. Slight tenderness to palpation. Good capillary refill distally. Near full range of motion limited by the swelling and discomfort. - Neurological Neuro grossly intact: Yes Cognition: Normal Orientation: AAOx4 - Psychological Associated symptoms: Normal affect, Normal mood - Skin Skin Temperature: Warm Skin Moisture: Dry Skin Color: Other - With the exception of area described on finger above Course - Re-evaluation Re-evalutation: 03/02/20 01:11 X-ray negative for acute process per radiologist. Suspect rotator cuff tendinitis. Patient will be slinged in the ED for treatment. We discussed follow-up with orthopedics for further care and management. He will use warm water soaks to the left ring finger wound and will continue Bactrim. He will see his doctor in 2 to 3 days for wound recheck and reevaluation. He will return here or any ER immediately with any new, persistent or worsening symptoms. He verbalized understood and agreed. - Vital Signs Vital signs: Temp Pulse Resp BP Pulse Ox 98.5 F 100 20 158/103 H 98 03/01/20 23:39 03/01/20 23:39 03/01/20 23:39 03/01/20 23:39 03/01/20 23:39 Discharge - Discharge Clinical Impression: Furuncle of finger Qualifiers: Laterality: unspecified laterality Qualified Code(s): L02.529 - Furuncle unspecified hand Rotator cuff tendinitis Qualifiers: Laterality: unspecified laterality Qualified Code(s): M75.80 - Other shoulder lesions, unspecified shoulder Condition: Stable Disposition: HOME, SELF-CARE Instructions: Tendonitis ([facility]) Additional Instructions: Follow-up with your regular doctor in 2 to 3 days for reevaluation. Return here or any ER immediately with any new, persistent or worsening symptoms. Prescriptions: Sulfamethoxazole/Trimethoprim [Bactrim Ds Tablet] 1 each PO BID #19 tablet Meloxicam [Mobic 7.5 Mg Tablet] 7.5 mg PO DAILY #20 tablet Referrals: DAY AMEZCUA MD [Primary Care Provider] - Follow up as needed JEAN MARIE BAJWA DO [ACTIVE STAFF] - Follow up as needed
--- NOTE | 2020-03-02 00:26 | RADIOLOGY REPORT (SQ) ---
CLINICAL HISTORY: pain s/p fall COMPARISON: None. TECHNIQUE: XR SHOULDER 2 OR MORE VIEWS 03/01/2020 11:55 PM CDT FINDINGS: There is no fracture. Joint spaces are preserved. Soft tissues are unremarkable. IMPRESSION: No acute osseous findings.
[2020-03-02 01:25] VITALS: BP 153/96
== END 2020-03-02 01:36 | disposition home or self-care (01) ==
LOC: ER 23:32
DX: L02.529 Furuncle unspecified hand (principal); M75.80 Other shoulder lesions, unspecified shoulder; M25.511 Pain in right shoulder; W01.0XXA Fall on same level from slipping, tripping and stumbling without subsequent striking against object, initial encounter; Y92.59 Other trade areas as the place of occurrence of the external cause; I50.9 Heart failure, unspecified; E78.00 Pure hypercholesterolemia, unspecified; I11.0 Hypertensive heart disease with heart failure; E11.21 Type 2 diabetes mellitus with diabetic nephropathy
CPT/HCPCS: 99283; 73030; J3490

== ENCOUNTER 2020-03-12 01:43 | Emergency (ER) | payer MEDICAID ==
[2020-03-12] MEDS ORDERED: ACETAMINOPHEN 325 MG TABLET PO ONE (03:28)
--- NOTE | 2020-03-12 03:35 | ER Document Report ---
ED Fall - General Mode of Arrival: Ambulatory Information source: Patient TRAVEL OUTSIDE OF THE [place] IN LAST 30 DAYS: No - HPI Occurred: Other - 2 days Where: Outdoors Context: Tripped Location of injury/pain: Knee Quality of pain: Achy Pain Level: 2 <SULMA FREY - Last Filed: 03/12/20 08:01> <BEHZAD HALL - Last Filed: 03/12/20 13:54> - General Chief Complaint: Fall Stated Complaint: FALL HIP KNEE AND ANKLE PAIN Time Seen by Provider: 03/12/20 03:14 Primary Care Provider: DAY AMEZCUA MD [Primary Care Provider] - Follow up as needed JEAN MARIE BAJWA DO [ACTIVE STAFF] - Follow up as needed Notes: Patient states that he has felt he had generalized body weakness today. Patient states that 2 days ago he stepped up on a curb and his left knee gave out causing him to fall. Patient states that yesterday he was walking in his bedroom and his left knee gave out again causing him to fall. Patient reports a history of neuropathy. Patient states that since the fall he has had left knee, left hip and left foot and ankle pain. Patient is uncertain if he may have injured something due to his neuropathy. Patient denies any head injury or loss of consciousness. Patient without any chest pain or dyspnea at this time. (SULMA FREY) - Related data Allergies/Adverse Reactions: No Known Drug Allergies Allergy (Verified 03/02/20 01:29) Past Medical History - General Information source: Patient - Social History Smoking Status: Former Smoker Frequency of alcohol use: None Drug Abuse: None Occupation: None Family History: Reviewed & Not Pertinent, DM - Past Medical History Cardiac Medical History: Reports: Hx Congestive Heart Failure - EF of 40%, Hx Hypercholesterolemia, Hx Hypertension Pulmonary Medical History: Reports: Hx Asthma Endocrine Medical History: Reports: Hx Diabetes Mellitus Type 2 - With neuropathy Renal/ Medical History: Denies: Hx Peritoneal Dialysis Psychiatric Medical History: Reports: Hx Bipolar Disorder Past Surgical History: Reports: Hx Tonsillectomy - Immunizations Immunizations up to date: Yes <SULMA FREY - Last Filed: 03/12/20 08:01> Review of Systems - Review of Systems Constitutional: Weakness. denies: Fever EENT: No symptoms reported Cardiovascular: No symptoms reported. denies: Chest pain, Palpitations, Syncope, Dizziness Respiratory: No symptoms reported. denies: Cough, Short of breath Gastrointestinal: No symptoms reported. denies: Abdominal pain, Nausea, Vomiting Genitourinary: No symptoms reported Male Genitourinary: No symptoms reported Musculoskeletal: Joint pain - Left knee, hip ankle and foot pain Skin: No symptoms reported Hematologic/Lymphatic: No symptoms reported Neurological/Psychological: No symptoms reported. denies: Confusion <SULMA FREY - Last Filed: 03/12/20 08:01> Physical Exam - General General appearance: Appears well, Alert In distress: None - HEENT Head: Normocephalic, Atraumatic Eyes: Normal Conjunctiva: Normal Nasal: Normal Mouth/Lips: Normal Neck: Normal, Supple. No: Lymphadenopathy - Respiratory Respiratory status: No respiratory distress Chest status: Nontender Breath sounds: Normal. No: Rales, Rhonchi, Stridor, Wheezing Chest palpation: Normal - Cardiovascular Rhythm: Regular Heart sounds: S1 appreciated, S2 appreciated Pulses: Normal: Dorsalis pedis - Back Back: Normal, Nontender. No: CVA tenderness - Extremities General upper extremity: Normal inspection, Normal ROM General lower extremity: Normal inspection, Normal ROM Hip: Tender - Left lateral hip tenderness with range of motion, Pain with ROM. No: Deformity, Dislocation, Unable to bear weight Thigh: Normal, Nontender Knee: Tender - Left knee tenderness to lateral compartment, no effusion, no calor, Pain with ROM, Patellar tendon intact. No: Joint effusion, Laxity with valgus stress, Laxity with varus stress, Tender joint line, Unable to bear weight Calf: Normal, Nontender Ankle: Tender - Left anterior ankle tenderness. No: Abrasion, Deformity, Ecchymosis, Edema, Instability, Laceration, Limited ROM, Unable to bear weight Foot: Tender - Tenderness to dorsal aspect of left midfoot. No: Abrasion, Deformity, Ecchymosis, Unable to bear weight - Neurological Neuro grossly intact: Yes Cognition: Normal [place] Coma Scale Eye Opening: Spontaneous [place] Coma Scale Verbal: Oriented [place] Coma Scale Motor: Obeys Commands [place] Coma Scale Total: 15 - Psychological Associated symptoms: Normal affect, Normal mood - Skin Skin Temperature: Warm Skin Moisture: Dry Skin Color: Normal <SULMA FREY - Last Filed: 03/12/20 08:01> - Vital signs Vitals: Temp Pulse Resp BP Pulse Ox 99.3 F 106 H 20 130/86 H 96 03/12/20 01:56 03/12/20 01:56 03/12/20 01:56 03/12/20 01:56 03/12/20 01:56 Course - Laboratory Result Diagrams: 03/12/20 03:40 03/12/20 03:40 - Diagnostic Test Radiology reviewed: Reports reviewed <SULMA FREY - Last Filed: 03/12/20 08:01> - Laboratory Result Diagrams: 03/12/20 03:40 03/12/20 07:38 <BEHZAD HALL - Last Filed: 03/12/20 13:54> - Re-evaluation Re-evalutation: 03/12/20 03:30 Patient with empty can of regular soda and an empty bag of gummy candies on the bedside table. Patient asking for an additional soda. Patient advised that due to his diabetes he could have a diet soda. 03/12/20 04:40 Patient not acidotic with his hyperglycemia, will give an additional liter of fluids and recheck his blood sugar. Patient encouraged to be on a diabetic diet. X-rays reviewed, patient without any bony abnormality. We will plan to immobilize the knee and encourage outpatient follow-up with orthopedics for any persistent pain or problems. 03/12/20 08:01 Report and handoff given to Behzad Hall (SULMA FREY) Disposition received from Sulma Frey NP at 0801. Patient serum blood sugar is 626. Patient states his A1c is around 12, had it checked last month. Discussed his x-rays. Patient states he has not taken any of his short or long acting insulin. will give 10 units of regular insulin, will recheck BS. Recheck blood sugar 408. Another 5 units of regular insulin, repeat blood sugar 296. Discussed with patient the importance of following a low-carb low sugar diet with his diabetes as well as taking his medication as directed. Discussed drinking diet soda instead of regular soda, avoiding any candies as this can negatively impact his diabetes. Patient was in agreement this plan of care and verbalized understanding plan of care. Advised to follow-up with orthopedic s pecialist and primary care provider in the next 24 to 48 hours. After performing a Medical Screening Examination, I estimate there is LOW risk for RUPTURED ESOPHAGUS, PNEUMOTHORAX, PULMONARY EMBOLISM, ACUTE CORONARY SYNDROME, OR THORACIC AORTIC DISSECTION, thus I consider the discharge disposition reasonable. I have reevaluated this patient multiple times and no significant life threatening changes are noted. The patient and I have discussed the diagnosis and risks, and we agree with discharging home with close follow-up. We also discussed returning to the Emergency Department immediately if new or worsening symptoms occur. We have discussed the symptoms which are most concerning (e.g., bloody sputum, worsening pain or shortness of breath) that necessitate immediate return. 03/12/20 13:52 (BEHZAD HALL) - Vital Signs Vital signs: Temp Pulse Resp BP Pulse Ox 98.0 F 84 18 141/77 H 96 03/12/20 09:25 03/12/20 09:25 03/12/20 09:25 03/12/20 09:25 03/12/20 09:25 - Laboratory Laboratory results interpreted by me: 03/12/20 03/12/20 03/12/20 03:40 03:40 07:38 RBC 5.91 H MCH 26.9 L Sodium 131.4 L Chloride 95 L Glucose 729 H* 626 H* POC Glucose 03/12/20 03/12/20 09:28 10:21 RBC MCH Sodium Chloride Glucose POC Glucose 408 H* 296 H Discharge <SULMA FREY - Last Filed: 03/12/20 08:01> <BEHZAD HALL - Last Filed: 03/12/20 13:54> - Discharge Clinical Impression: Hyperglycemia Left knee sprain Qualifiers: Encounter type: initial encounter Involved ligament of knee: unspecified ligament Qualified Code(s): S83.92XA - Sprain of unspecified site of left knee, initial encounter Left ankle pain Qualifiers: Chronicity: unspecified Qualified Code(s): M25.572 - Pain in left ankle and joints of left foot Sprain of left hip Qualifiers: Encounter type: initial encounter Qualified Code(s): S73.102A - Unspecified sprain of left hip, initial encounter Condition: Stable Disposition: HOME, SELF-CARE Instructions: Use of Crutches ([facility]), Diabetes ([facility]), Knee Immobilizing Splint ([facility]), Sprained Ankle ([facility]) Additional Instructions: Return immediately for any new or worsening symptoms Followup with your primary care provider, call tomorrow to make a followup appointment Weightbearing as tolerated Please follow a low carbohydrate, low sugar diet. Please take your medications as directed. Check your blood sugar prior to meals and several times throughout the day as needed Follow-up with orthopedics for any persistent pain or problems You should eat a diabetic diet avoiding concentrated sweets and sugary sodas Return immediately for any new or worsening symptoms. Follow up with primary care provider, call tomorrow to make followup appointment. Referrals: DAY AMEZCUA MD [Primary Care Provider] - Follow up as needed JEAN MARIE BAJWA DO [ACTIVE STAFF] - Follow up as needed
[2020-03-12 04:16] LABS: ANION GAP 13 (5-19); BLOOD UREA NITROGEN 13 mg/dL (7-20); CALCIUM 9.6 mg/dL (8.4-10.2); CARBON DIOXIDE 23 mmol/L (22-30); CHLORIDE 95 mmol/L (98-107)
[2020-03-12 04:24] LABS: ABSOLUTE EOSINOPHILS # (AUTO) 0.1 10^3/uL (0.0-0.6); ABSOLUTE LYMPHOCYTES (AUTO) 1.1 10^3/uL (0.5-4.7); ABSOLUTE MONOCYTES (AUTO) 0.5 10^3/uL (0.1-1.4); ABSOLUTE NEUT (AUTO) 5.2 10^3/uL (1.7-8.2); BASOPHILS % (AUTO) 0.5 % (0-2); EOSINOPHILS % (AUTO) 1.7 % (0-6); HEMATOCRIT 47.3 % (37.9-51.0); HEMOGLOBIN 15.9 g/dL (13.5-17.0); LYMPHOCYTES % (AUTO) 15.9 % (13-45); MEAN CORPUSCULAR HEMOGLOBIN 26.9 pg (27.0-33.4); MEAN CORPUSCULAR HGB CONC 33.7 g/dL (32.0-36.0); MEAN CORPUSCULAR VOLUME 80 fl (80-97); MONOCYTES % (AUTO) 7.4 % (3-13); PLATELET COUNT 263 10^3/uL (150-450); RED BLOOD COUNT 5.91 10^6/uL (4.35-5.55); RED CELL DISTRIBUTION WIDTH 13.6 % (11.5-14.0); SEGMENTED NEUTROPHILS % (AUTO) 74.5 % (42-78); TOTAL CELLS COUNTED % (AUTO) 100 %; WHITE BLOOD COUNT 6.9 10^3/uL (4.0-10.5)
[2020-03-12 04:37] LABS: GLUCOSE 729 mg/dL (75-110)
[2020-03-12] MEDS ORDERED: NORMAL SALINE 1000 ML 1,000 ML IV ONE ×2 (04:46→06:34)
[2020-03-12] MEDS ORDERED: INSULIN REG, HUMAN 100 UNIT/ML 3 ML VIAL (PYX) SUBCUT ONE (04:47)
--- NOTE | 2020-03-12 04:50 | RADIOLOGY REPORT (SQ) ---
EXAM DESCRIPTION: XR FOOT 3 OR MORE VIEWS COMPLETED DATE/TME: 03/12/2020 03:28 CLINICAL HISTORY: 29 years, Male, fall COMPARISON: None. NUMBER OF VIEWS: Three TECHNIQUE: Three views of the left foot LIMITATIONS: None. FINDINGS: No acute fracture or dislocation. No large soft tissue swelling. No erosion or periosteal reaction. Small dorsal calcaneal spur. No radiopaque foreign body. IMPRESSION: No acute fracture or dislocation copyright 2010 [employer]- All Rights Reserved
--- NOTE | 2020-03-12 04:51 | RADIOLOGY REPORT (SQ) ---
EXAM DESCRIPTION: XR HIP 2 OR MORE VIEWS COMPLETED DATE/TME: 03/12/2020 03:28 CLINICAL HISTORY: 29 years, Male, fall COMPARISON: None. NUMBER OF VIEWS: Two TECHNIQUE: AP view of the pelvis with frog-leg image of the left hip LIMITATIONS: None. FINDINGS: No acute fracture or dislocation. No radiopaque foreign body. The hip and sacroiliac joints appear intact. IMPRESSION: No acute fracture or dislocation copyright 2010 [employer]- All Rights Reserved
--- NOTE | 2020-03-12 04:52 | RADIOLOGY REPORT (SQ) ---
EXAM DESCRIPTION: XR ANKLE 3 OR MORE VIEWS COMPLETED DATE/TME: 03/12/2020 03:28 CLINICAL HISTORY: 29 years, Male, fall COMPARISON: None. NUMBER OF VIEWS: Three TECHNIQUE: Three views of the left ankle LIMITATIONS: None. FINDINGS: No acute fracture or dislocation. Ankle mortise is intact. No large soft tissue swelling. Small dorsal calcaneal spur. IMPRESSION: No acute fracture or dislocation copyright 2011 [employer]- All Rights Reserved
--- NOTE | 2020-03-12 04:53 | RADIOLOGY REPORT (SQ) ---
EXAM DESCRIPTION: XR KNEE 4 OR MORE VIEWS COMPLETED DATE/TME: 03/12/2020 03:28 CLINICAL HISTORY: 29 years, Male, fall COMPARISON: None. NUMBER OF VIEWS: Four TECHNIQUE: Four views of the left knee LIMITATIONS: None. FINDINGS: No acute fracture or dislocation. Joint spaces are preserved. No joint effusion. No large soft tissue swelling. No radiopaque foreign body. IMPRESSION: No acute fracture or dislocation copyright 2010 [employer]- All Rights Reserved
[2020-03-12 06:00] LABS: VENOUS BLOOD BASE EXCESS -3.1 mmol/L; VENOUS BLOOD HCO3 23.2 mmol/L (20-32); VENOUS BLOOD PCO2 45.9 mmHg (35-63); VENOUS BLOOD PH 7.32 (7.30-7.42)
[2020-03-12] MEDS ORDERED: INSULIN REG, HUMAN 100 UNIT/ML 3 ML VIAL (PYX) IV ONE ×2 (08:30→09:30)
[2020-03-12 10:05] VITALS: BP 141/77
== END 2020-03-12 10:34 | disposition home or self-care (01) ==
LOC: ER 01:43
DX: S83.92XA Sprain of unspecified site of left knee, initial encounter (principal); S73.102A Unspecified sprain of left hip, initial encounter; E11.40 Type 2 diabetes mellitus with diabetic neuropathy, unspecified; M79.10 Myalgia, unspecified site; M25.572 Pain in left ankle and joints of left foot; R53.1 Weakness; W10.1XXA Fall (on)(from) sidewalk curb, initial encounter; I50.9 Heart failure, unspecified; I11.0 Hypertensive heart disease with heart failure; E78.00 Pure hypercholesterolemia, unspecified; Z79.4 Long term (current) use of insulin
CPT/HCPCS: 99284; 96361; 96374; 96375; 36415; 82962; 82947; 85025; 80048; 82803; 73610; 73630; 73502; 73564; J3490; J1815; J7030